=== PATIENT | female | born 1985 | race Caucasian/White ===

== ENCOUNTER 2017-12-08 12:52 | Emergency (ER) | payer OTHER ==
[~2017-12-08] VITALS: Ht 162.6 cm; Wt 71.1 kg
[~2017-12-08 12:52] MED LIST: CLIN1GEL54 TOP
[2017-12-08 12:56] VITALS: TEMP 36.7; Ht 162.6 cm; Wt 71.1 kg
[2017-12-08] MEDS ORDERED: ALPRAZOLAM 0.5 MG TAB PO STA (13:26)
[2017-12-08] MEDS ORDERED: CEPHALEXIN MONOHYDRATE 250 MG CAP PO ONE (13:30)
[2017-12-08] MEDS ORDERED: SULFAMETHOXAZOLE/TRIMETHOPRIM DS 800/160MG TAB PO ONE (13:30)
[2017-12-08] MEDS ORDERED: SULF800T23 PO (13:31)
[2017-12-08] MEDS ORDERED: ALPR-385 PO (13:31)
[2017-12-08] MEDS ORDERED: CEPH500C2 PO (13:31)
--- NOTE | 2017-12-08 13:31 | EMERGENCY ROOM VISIT NOTE ---
History Report prepared by Alma: Butch Barrios Under the Supervision of: Dr. Temo Ward D.O. First contact with patient: 13:00 Chief Complaint: MENTAL HEALTH EVALUATION Stated Complaint: PANIC ATTACK History of Present Illness The patient is a 32 year old female who presents to the Emergency Room with complaints of intermittent, yet worsening anxiety and panic attacks that she has been experiencing for the past 3 weeks. The patient states that she has had to call off work 4 times in the past 3 weeks due to anxiety/panic attacks. Her anxiety is precipitated by being around a lot of people, and she has had several panic attacks in the lunch-room at work. Her episode today lasted 10-15 minutes. She was seen in [place] ED a few days ago for similar symptoms and was sent home with Alprazolam and instructions to follow-up with with her primary care office. The patient does not currently have a psychiatrist as she discontinued her relationship with her prior psychiatrist because he wanted to attempt ECT treatment. The patient has a long history of anxiety, but denies any suicidal thoughts or every attempting to hurt herself. She denies any drug use or alcohol intake. She does smoke cigarettes. She takes Effexor daily and is now taking the Alprazolam. Source of History: patient Onset: 3 weeks Position: head (Psych) Symptom Intensity: 10-15 minute panic attack episode Quality: other (Anxiety) Timing: intermittent, worsening Review of Systems See HPI for pertinent positives & negatives. A total of 10 systems reviewed and were otherwise negative. Past Medical & Surgical Hx of Endometriosis. Family History Diabetes mellitus Hypertension Social History Smoking Status: Current Every Day Smoker Alcohol Use: none Drug Use: none Marital Status: single Housing Status: lives with family Occupation Status: employed Current/Historical Medications Scheduled Cephalexin Monohydrate (Keflex), 500 MG PO QID Clindamycin Hcl (Cleocin), 300 MG PO TID Sulfa/Trimethoprim (Bactrim Ds 800MG/160MG), 1 TAB PO BID Allergies Coded Allergies: Lorazepam (Unverified Allergy, Intermediate, RASH, 12/08/17) Morphine (Unverified Allergy, Intermediate, ARM BLEW UP, 12/08/17) Doxycycline (Verified Adverse Reaction, Unknown, vomiting, 02/20/14) Promethazine (Verified Adverse Reaction, Unknown, VOMITING, 02/20/14) Physical Exam Vital Signs Date Time Temp Pulse Resp B/P (MAP) Pulse Ox O2 Delivery O2 Flow Rate FiO2 12/08/17 14:30 86 16 126/72 99 12/08/17 12:56 36.7 90 16 134/77 97 Room Air Physical Exam GENERAL: Patient is awake, alert, and in no acute distress. Patient is very anxious appearing. EYES: The conjunctivae are clear. The pupils are round and reactive. EARS, NOSE, MOUTH AND THROAT: The nose is without any evidence of any deformity. Mucous membranes are moist tongue is midline NECK: The neck is nontender and supple. RESPIRATORY: Normal respiratory effort is noted there is no evidence of wheezing rhonchi or rales CARDIOVASCULAR: Regular rate and rhythm noted there no murmurs rubs or gallops normal S1 normal S2 GASTROINTESTINAL: The abdomen is soft. Bowel sounds are present in all quadrants. Abdomen is nontender MUSCULOSKELETAL/EXTREMITIES: There is no evidence of gross deformity full range of motion is noted in the hips and shoulders SKIN: There is a recent drained abscess on the left outer breast, purulent drainage noted. No fluctuance appreciated. There is no obvious evidence of any rash. There are no petechiae, pallor or cyanosis noted. NEUROLOGIC: Patient is awake alert and oriented x3 strength is symmetric patellar reflexes are 2+ bilaterally PSYCH: Affect was animated. Good eye contact. Patient appears very anxious. She is currently denying suicidal/homicidal ideations. Medical Decision & Procedures Medications Administered Medications (Trade) Dose Ordered Sig/Edna Route Start Time Stop Time Status Last Admin Dose Admin Alprazolam (Xanax Tab) 1 mg NOW STAT PO 12/08/17 13:26 12/08/17 13:27 DC 12/08/17 13:39 1 MG Trimethoprim/ Sulfamethoxazole (Septra Ds 800/ 160MG Tab) 1 tab NOW ONCE PO 12/08/17 13:30 12/08/17 13:31 DC 12/08/17 13:39 1 TAB Cephalexin Monohydrate (Keflex Cap) 500 mg NOW ONCE PO 12/08/17 13:30 12/08/17 13:31 DC 12/08/17 13:39 500 MG ED Course 1307: The patient was evaluated in room A8. A complete history and physical examination were performed. 1326: Ordered Xanax 1 mg PO. 1330: Ordered Cephalexin 500 mg PO, Trimethoprim 1 tablet PO. 1341: I discussed the results and treatment plan with her. She verbalized agreement of the treatment plan. The patient was discharged home. Medical Decision Differential diagnosis: Etiologies such as mood disorder, infection, hypoglycemia, electrolyte abnormalities, cardiac sources, intracerebral event, toxicologic, neurologic, as well as others were entertained. Nursing notes reviewed. Nursing notes reviewed The patient is a 32-year-old female who has a long history of anxiety who presented to the emergency department for evaluation of anxiety. The patient was treated with Xanax in the emergency department. The patient also complained of a recently drained abscess on her left breast. This was open but still actively draining. There did not appear to be any definite abscess left. A culture was sent. The patient was started on Bactrim and Keflex. She was set up an appointment with wound care center. We also were able to set the patient up with outpatient follow-up. She was encouraged to continue all medications as prescribed and call her primary care physician as well as her primary therapist for a follow-up appointment. The patient had a prescription for Xanax filled yesterday. For this reason she was encouraged to take this prescription rather than have a new prescription given to her. She is also encouraged to call crisis or return to the emergency department immediately if symptoms change worsening the need arises. [place] Drug Monitoring Program Search Results: patient reviewed within database Drug Monitoring Findings: Patient had 20 Alprazolam tablets filled yesterday. This will get her through. Medication Reconcilliation Current Medication List: was personally reviewed by me Blood Pressure Screening Patient's blood pressure: Normal blood pressure Impression Primary Impression: Acute anxiety Additional Impression: Left breast abscess Scribe Attestation The scribe's documentation has been prepared under my direction and personally reviewed by me in its entirety. I confirm that the note above accurately reflects all work, treatment, procedures, and medical decision making performed by me. Departure Information Dispostion Home / Self-Care Prescriptions Sulfa/Trimethoprim (Bactrim Ds 800MG/160MG) Tab 1 TAB PO BID, #14 TAB Prov: Temo Ward, DO 12/08/17 Cephalexin Monohydrate (KEFLEX) 500 Mg Cap 500 MG PO QID, #28 CAP Prov: Temo Ward, DO 12/08/17 Referrals Nick Whalen M.D. (PCP) Forms HOME CARE DOCUMENTATION FORM, IMPORTANT VISIT INFORMATION Patient Instructions My [facility] Additional Instructions Follow-up with your family doctor as well as the wound care center as scheduled. Continue to put dry dressings to the drainage area on your left breast 2-3 times a day. Continue all medications only as prescribed. Return to the emergency department immediately if symptoms change worsen or the need arises. Continue to use Motrin and Tylenol as directed for pain. Problem Qualifiers
[2017-12-08] MEDS ORDERED: CLIN300C2 PO (13:46)
[2017-12-08 14:30] VITALS: BP 126/72; PULSE 86; O2SAT 99
== END 2017-12-08 14:30 | disposition home or self-care (01) ==
LOC: C.EDB 12:53 → C.EDA 14:30
DX: F41.9 Anxiety disorder, unspecified (principal); N61.1 Abscess of the breast and nipple; F17.210 Nicotine dependence, cigarettes, uncomplicated; Z88.1 Allergy status to other antibiotic agents; Z88.8 Allergy status to other drugs, medicaments and biological substances

== ENCOUNTER 2018-09-12 18:00 | Observation (INO) ==
[2018-09-12] MEDS ORDERED: ACETAMINOPHEN 500 MG TAB PO STA (18:40)
[2018-09-12] MEDS ORDERED: ALPRAZolam 0.5 MG TABLET PO STA (18:40)
[2018-09-12] MEDS: IBUPROFEN 600 MG TAB PO STA (19:21)
[2018-09-12 19:58] LABS: Basophils # (auto) 0.02 K/uL (0-0.2); Basophils % (auto) 0.2 %; Eosinophils # (auto) 0.19 K/uL (0-0.5); Eosinophils % (auto) 2.1 %; Hematocrit (blood only) 33.7 % (37-47); Hemoglobin 11.2 g/dL (12.0-16.0); Immature Granulocytes # (auto) 0.02 K/uL (0.00-0.02); Immature Granulocytes % (auto) 0.2 %; Lymphocytes # (auto) 2.58 K/uL (1.2-3.4); Mean Corpuscular Hgb Conc 33.2 g/dL (32-36); Mean Corpuscular Volume 86.2 fL (80-100); Mean Platelet Volume 9.2 fL (7.4-10.4); Monocytes # (auto) 0.57 K/uL (0.11-0.59); Monocytes % (auto) 6.4 %; Neutrophils # (auto) 5.53 K/uL (1.4-6.5); Neutrophils % (auto) 62.1 %; Platelet Count 253 K/uL (130-400); RDW Coefficient of Variation 13.8 % (11.5-14.5); RDW Standard Deviation 43.6 fL (36.4-46.3); Red Blood Count 3.91 M/uL (4.2-5.4); White Blood Count 8.91 K/uL (4.8-10.8)
[2018-09-12] MEDS ORDERED: ONDANSETRON INJ 2 MG/ML 2 ML VIAL IV STA (19:58)
[2018-09-12] MEDS ORDERED: SODIUM CHLORIDE 0.9% 1000ML 1,000 ML IV ONE (19:58)
[2018-09-12] MEDS ORDERED: HYDROmorphone INJ 0.5 MG/0.5 ML SYR IV PRN (19:59)
[2018-09-12 20:09] LABS: INR 0.9 (0.9-1.1); Partial Thromboplastin Time 27.1 Seconds (21.0-31.0); Prothrombin Time 9.6 Seconds (9.0-12.0)
[2018-09-12 20:13] LABS: BUN Creatinine Ratio 27.9 (10-20); Blood Urea Nitrogen 10 mg/dl (7-18); Calcium 7.9 mg/dl (8.5-10.1); Carbon Dioxide 27 mmol/L (21-32); Chloride 104 mmol/L (98-107); Creatinine Clr Calc Pharmacy 215.3 ml/min; Est GFR (African American) > 150.0; Est GFR (Non-African American) 139.4; Glucose 96 mg/dl (70-99); Sodium 137 mmol/L (136-145)
[2018-09-12] MEDS ORDERED: fentaNYL citrate 100 MCG/2 ML VIAL ONE (20:32)
[2018-09-12] MEDS ORDERED: SUCCINYLCHOLINE CHLORIDE 20 MG/ML 10 ML VIAL ONE (20:32)
[2018-09-12] MEDS ORDERED: PROPOFOL IV EMULSION 10 MG/ML 20 ML VIAL IV ONE (20:32)
[2018-09-12] MEDS ORDERED: MIDAZOLAM HCL 1 MG/ML 2ML VIAL ONE (20:32)
[2018-09-12] MEDS ORDERED: ALBUMIN HUMAN 5% 12.5 GM/250 ML VIAL IV ONE (20:35)
--- NOTE | 2018-09-12 20:38 | Anesthesiology Consultation ---
Date of Service September 12, 2018 Assessment & Plan (1) Encounter for pre-operative examination: Chart Review Chart Review: Acceptable Risk for Surgery and Patient NOT seen in Pre Admission Testing Consults Requested none History Surgery Operation Date: 09/12/18 20:30 Proposed Procedures p Dilation and Evacuation - Olvin Menjivar MD Height/Weight Height: 5 ft 4 in Weight: 77.1 kg Allergies Allergy/AdvReac Type Severity Reaction Status Date / Time lorazepam Allergy Intermediate RASH Unverified 07/25/18 19:00 morphine Allergy Intermediate ARM BLEW UP Unverified 07/25/18 19:00 doxycycline AdvReac Unknown vomiting Verified 07/25/18 19:00 promethazine AdvReac Unknown VOMITING Verified 07/25/18 19:00 Medications Home Medications Medication Instructions Recorded Confirmed Last Taken PNV cmb#95-ferrous fumarate-FA 1 tab PO DAILY 07/25/18 07/25/18 Unknown [] Active Medications Generic Name Dose Route Start Last Admin Trade Name Freq PRN Reason Stop Dose Admin Hydromorphone HCl 0.5 mg 09/12/18 19:59 09/12/18 20:04 Dilaudid IV 09/26/18 19:58 0.5 mg Q15M PRN Administration Pain Sodium Chloride 1,000 mls @ 999 mls/hr 09/12/18 19:58 09/12/18 20:04 Nss 1000ml IV 09/12/18 20:58 999 mls/hr .Q1H1M ONE Administration Past Medical History Medical History Hx of History of miscarriage Past Surgical History d and e Past Anesthesia History No Hx of Anesthesia Complications and No Family Hx of Anesthesia Complications History of PONV No Motion Sickness Screening History of Motion Sickness: No Social History Smoking Status: Current every day smoker Smoking cigarettes per day: 1/2 pack day Hx Alcohol Use: No Physical Exam Vital Signs Last Vital Signs Temp 37.2 C 09/12/18 18:04 Pulse 97 H 09/12/18 18:04 Resp 20 09/12/18 18:04 BP 125/68 09/12/18 18:04 Testing Laboratory Results 09/12/18 19:44 09/12/18 19:44 PT 9.6 Seconds (9.0-12.0) 09/12/18 19:44 INR 0.9 (0.9-1.1) 09/12/18 19:44 APTT 27.1 Seconds (21.0-31.0) 09/12/18:44 09/12/18:44 HCG, Quant Pending
[2018-09-12] MEDS ORDERED: ePHEDrine sulfate 50 MG/ML AMP IV PRN (20:41)
[2018-09-12] MEDS ORDERED: ONDANSETRON INJ 2 MG/ML 2 ML VIAL IV PRN ×2 (20:41→21:38)
[2018-09-12] MEDS ORDERED: fentaNYL citrate 100 MCG/2 ML VIAL IV PRN (20:41)
[2018-09-12] MEDS ORDERED: ATROPINE SULFATE 0.1 MG/ML 10ML SYR IV PRN (20:41)
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
[2018-09-12] MEDS ORDERED: SODIUM CHLORIDE 0.9% 250 ML IV PRN (21:14)
[2018-09-12] MEDS ORDERED: ACETAMINOPHEN 325 MG TAB PO PRN (21:38)
--- NOTE | 2018-09-12 21:38 | Post Operative Brief Note ---
Immediate Post Op Note v1 Date of Surgery September 12, 2018 Pre & Post Diagnosis Operation Date: 09/12/18 20:30 <No data on this case meets the specified criteria> incomplete heavy bleeding with clotting Procedure Operation Date: 09/12/18 20:30 <No data on this case meets the specified criteria> suction and sharp evacuation of uterine contents Surgeon Olvin Menjivar MD Thermoplastic Technician none Estimated Blood Loss 200 Findings Consistent with Post-Op Diagnosis retained placenta Specimens uterine contents Anesthesia Type General Complications none Disposition Accompanied Patient To Recovery: No Disposition: Surgical ICU Overlapping Procedure I was immediately available: during the entire case.
[2018-09-12] MEDS ORDERED: CEFAZOLIN 2000MG 2,000 MG/15 ML SYR IV SCH (22:00)
[2018-09-12 22:13] LABS: Basophils # (auto) 0.03 K/uL (0-0.2); Basophils % (auto) 0.3 %; Eosinophils # (auto) 0.15 K/uL (0-0.5); Eosinophils % (auto) 1.5 %; Hemoglobin 9.2 g/dL (12.0-16.0); Immature Granulocytes # (auto) 0.03 K/uL (0.00-0.02); Immature Granulocytes % (auto) 0.3 %; Lymphocytes # (auto) 2.26 K/uL (1.2-3.4); Lymphocytes % (auto) 21.9 %; Mean Corpuscular Volume 87.7 fL (80-100); Mean Platelet Volume 9.2 fL (7.4-10.4); Monocytes # (auto) 0.56 K/uL (0.11-0.59); Monocytes % (auto) 5.4 %; Neutrophils # (auto) 7.31 K/uL (1.4-6.5); Neutrophils % (auto) 70.6 %; Platelet Count 203 K/uL (130-400); RDW Coefficient of Variation 13.7 % (11.5-14.5); RDW Standard Deviation 44.1 fL (36.4-46.3); Red Blood Count 3.08 M/uL (4.2-5.4); White Blood Count 10.34 K/uL (4.8-10.8)
[2018-09-12 22:17] LABS: Mean Corpuscular Hgb Conc 34.1 g/dL (32-36)
--- NOTE | 2018-09-12 23:05 | Anesthesiology Progress Note ---
Date of Service September 12, 2018 Anesthesia Post Procedure Vital Signs Vital Signs: Temp Pulse Pulse Resp BP BP Pulse Ox 09/12/18 22:06 36.2 C L 86 18 103/71 95 09/12/18 21:56 86 18 103/61 96 09/12/18 21:46 83 16 118/69 97 09/12/18 21:36 86 18 110/65 97 09/12/18 21:26 36.3 C L 85 20 105/59 L 100 09/12/18 18:04 37.2 C 97 H 20 125/68 Notes Mental Status: alert / awake / arousable and participated in evaluation Patient Amnestic to Procedure: Yes Nausea / Vomiting: adequately controlled Pain: adequately controlled Airway Patency, RR, SpO2: stable & adequate BP & HR: stable & adequate Hydration State: stable & adequate Anesthetic Complications: no major complications apparent and Pt Satisfied with anesthetic care Notes: Patient was urgently taken to the OR for heavy vaginal bleeding for an incomplete . She had an IV placed in the ER in her left foot. In OR, prior to induction, I noticed the IV did NOT run and when flushed it appeared there was blood return that was pulsating. Given the concern that it was intra- arterial, I placed an IV using U/S guidance in her LUE on the first attempt. I used this IV for induction and the remainder of the case. The procedure was 7 minutes and the remaining products of conception were removed. Patient received IV fluid therapy and albumin. She also received a dose of methergine in her left deltoid per surgeon. Hemostasis was achieved and patient was easily extubated and taken to recovery. Her vitals were stable and HR was NOT tachycardic. She was somehwhat somnolent but was able to state she had no main or nausea. I ordered 2 units of pRBCs to be crossmatched. I also ordered a repeat CBC in recovery, which shows a hemoglobin of slightly over 9. Given her stable hemodynamics, lack of heart disease and the fact that she had the D&E successfully completed, I felt she did not warrant a blood transfusion at this time. Dr. Menjivar is primary for this patient and plans to repeat the CBC in the morning or sooner if she becomes in any way symptomatic.
[2018-09-12] MEDS: SODIUM CHLORIDE 0.9% 1000ML 1,000 ML IV SCH (23:30)
--- NOTE | 2018-09-13 03:50 | Operative Report ---
DATE OF OPERATION: 09/12/2018 PROCEDURE: Suction sharp evacuation of uterine content. INDICATIONS FOR SURGERY: Heavy vaginal bleeding with clotting. PREOPERATIVE DIAGNOSIS: Retained placenta, hemorrhage. POSTOPERATIVE DIAGNOSIS: Same, pathology pending. SURGEON: Quinton Menjivar MD ESTIMATED BLOOD LOSS: 200 mL plus. ANESTHESIA: General. OPERATIVE FINDINGS AND PROCEDURE: The patient was brought to the OR table, correctly identified by armband and conversation. It was necessary to restart an IV. The anesthesiologist got a good IV in, then put the patient to sleep. Inspection of the perineum revealed heavy vaginal bleeding and clotting. Perineum and vagina were painted with Betadine paint after positioning the patient in the stirrups. Following this, weighted speculum was placed in the posterior vagina. Anterior lip of cervix was grasped with ring forceps. Cervix was already dilated. A smooth curette was placed in the uterine cavity. All 4 quadrants of the uterus were thoroughly and systematically curetted. This was productive of a large amount of retained placental tissue. Following this, a suction curette was placed in the uterine cavity and suction was reapplied to remove all remaining fragments and debris and clots. Following this, bimanual massage was performed with IM Methergine given. With this, the patient achieved good hemostasis. Instruments were removed. The patient tolerated the procedure well and left the OR in good condition. I attest to the content of the Intraoperative Record and any orders documented therein. Any exception s are noted below.
[2018-09-13 07:13] LABS: Basophils # (auto) 0.01 K/uL (0-0.2); Basophils % (auto) 0.2 %; Eosinophils # (auto) 0.12 K/uL (0-0.5); Eosinophils % (auto) 1.9 %; Hematocrit (blood only) 21.9 % (37-47); Hemoglobin 7.3 g/dL (12.0-16.0); Immature Granulocytes # (auto) 0.02 K/uL (0.00-0.02); Immature Granulocytes % (auto) 0.3 %; Lymphocytes # (auto) 2.11 K/uL (1.2-3.4); Lymphocytes % (auto) 33.1 %; Mean Corpuscular Hgb Conc 33.3 g/dL (32-36); Mean Corpuscular Volume 86.2 fL (80-100); Monocytes # (auto) 0.43 K/uL (0.11-0.59); Monocytes % (auto) 6.7 %; Neutrophils # (auto) 3.69 K/uL (1.4-6.5); Neutrophils % (auto) 57.8 %; Platelet Count 212 K/uL (130-400); RDW Coefficient of Variation 13.8 % (11.5-14.5); RDW Standard Deviation 44.1 fL (36.4-46.3); Red Blood Count 2.54 M/uL (4.2-5.4); White Blood Count 6.38 K/uL (4.8-10.8)
[2018-09-13 07:40] LABS: RBC Morphology Unremarkable
[2018-09-13] MEDS ORDERED: INFLUENZA ADMINISTRATION CHARGE ONE (09:00)
[2018-09-13] MEDS ORDERED: INFLUENZA VIRUS QUAD VACCINE 0.5 ML SYR IM ONE (09:00)
--- NOTE | 2018-09-13 11:07 | Obstetrical Progress Note ---
Date of Service September 13, 2018 Physical Exam 2 Vital Signs (Past 24 Hours): Last Vital Signs Temp 36.8 C 09/13/18 07:08 Pulse 86 09/13/18 07:08 Resp 18 09/13/18 07:08 BP 93/57 L 09/13/18 07:08 Pulse Ox 97 09/13/18 07:08 Physical Exam: abdomen soft and non tender vaginal bleeding scant to moderate no calf tenderness ambulating well hgb 7.3 patient instructed to take vitamins and supplemental iron
[2018-09-13] MEDS: SODIUM CHLORIDE 0.9% 1000ML 1,000 ML IV SCH (11:16)
--- NOTE | 2018-09-13 11:29 | Emergency Department Note ---
Entered by Seven Chung acting as a scribe for Hollis Judd MD History of Present Illness General Chief complaint: Vaginal Bleeding Stated complaint: VAGINAL BLEEDING Time Seen by Provider: 09/12/18 18:31 Source: patient History of Present Illness Provider complaint: vaginal bleeding Onset (ago): day(s) 5 Location: genitals Pain Consistency: + other (sudden) Maximum Pain Intensity: 10 Current Pain Intensity: 8 Quality: + other (cramping) Associated symptoms: + other (abdominal pain and cramping, delivered fetus and placenta at 13-14 weeks) Treatments prior to arrival: none The patient is a 33 year old female who presents to the Emergency Room with complaints of vaginal bleeding that started 5 days ago. The patient reports that when she woke up 5 days ago she felt like she had been incontinent, but reports that it was her water that broke, but she noticed there was blood in it. The patient states that the bleeding worsened after 5 to 10 minutes. The patient admits to cramping and lower abdominal pain. She rates her pain as an 8/ 10 in severity. She states she made an appointment with her OBGYN and reports that while she was walking into the doctors office, she ran to the bathroom where she delivered the fetus as well as the placenta. The patient states that she was about 13-14 weeks and reports that she has been 11 times and has had 9 miscarriages. The patient reports that she has been bleeding since then and has been using pads for the bleeding, but, the bleeding worsened today as did her cramping. She reports a history of a DNE procedure. She denies taking anything for her symptoms. Home Medications Home Medications Medication Instructions Recorded Confirmed Type alprazolam [Xanax] 1 mg PO TID PRN 09/13/18 09/13/18 History methadone 110 mg PO DAILY 09/13/18 09/13/18 History Allergies Allergy/AdvReac Type Severity Reaction Status Date / Time lorazepam Allergy Intermediate RASH Unverified 07/25/18 19:00 morphine Allergy Intermediate ARM BLEW UP Unverified 07/25/18 19:00 doxycycline AdvReac Unknown vomiting Verified 07/25/18 19:00 promethazine AdvReac Unknown VOMITING Verified 07/25/18 19:00 Past Med/Surg History Medical History Hx of History of miscarriage Family History Other No known health problems Social History Current Living Situation: Significant Other Current Living Situation Comment: fiance and children current occupational status: employed Other Information That Helps Us Care for You: No Feels Safe at Home: Yes Safety Concerns: Feels Safe At This Time Smoking Status: Current every day smoker Tobacco Type: cigarettes Do You Dip or Chew Tobacco: No Tobacco Cessation Education Requested by Patient: No Hx Alcohol Use: No Hx Substance Use: No Beliefs That Will Affect Care: None Preferred Language: [place] Review of Systems See HPI for pertinent positives & negatives. and A total of 10 systems reviewed and were otherwise negative Physical Exam Vital Signs Vital Signs - 24 hr 09/12/18 18:04 09/12/18 21:26 09/12/18 21:36 Temperature 37.2 C 36.3 C L Temperature Source Oral Oral Sepsis Recent Fever Within 48 Hours No Sepsis Action Taken by Nursing No Action Required Pulse Rate 97 H Pulse Rate [Left Apical] 85 86 Pulse Rate [Left Brachial] Pulse Rhythm [Left Apical] Regular Regular Pulse Strength [Left Apical] Normal Normal Respiratory Rate 20 20 18 Respiratory Effort / Characteristics Non-Labored Spontaneous Non-Labored Spontaneous Respiratory Depth Normal Normal Respiratory Pattern Regular Regular Blood Pressure 125/68 Blood Pressure [Left Arm] Blood Pressure [Right Arm] 105/59 L 110/65 Blood Pressure Mean 87 Blood Pressure Mean [Left Arm] Blood Pressure Mean [Right Arm] 74 80 Blood Pressure Position Sitting Blood Pressure Position [Left Arm] Blood Pressure Position [Right Arm] Lying Lying Pulse Oximetry 100 97 Oxygen Delivery Method Oxymask Oxymask Oxygen Flow Rate 5 5 09/12/18 21:46 09/12/18 21:56 09/12/18 22:06 Temperature 36.2 C L Temperature Source Oral Sepsis Recent Fever Within 48 Hours Sepsis Action Taken by Nursing Pulse Rate Pulse Rate [Left Apical] 83 86 86 Pulse Rate [Left Brachial] Pulse Rhythm [Left Apical] Regular Regular Regular Pulse Strength [Left Apical] Normal Normal Normal Respiratory Rate 16 18 18 Respiratory Effort / Characteristics Non-Labored Spontaneous Non-Labored Spontaneous Non-Labored Spontaneous Respiratory Depth Normal Normal Normal Respiratory Pattern Regular Regular Regular Blood Pressure Blood Pressure [Left Arm] Blood Pressure [Right Arm] 118/69 103/61 103/71 Blood Pressure Mean Blood Pressure Mean [Left Arm] Blood Pressure Mean [Right Arm] 85 75 81 Blood Pressure Position Blood Pressure Position [Left Arm] Blood Pressure Position [Right Arm] Lying Lying Lying Pulse Oximetry 97 96 95 Oxygen Delivery Method Room Air Room Air Room Air Oxygen Flow Rate 09/12/18 23:02 09/12/18 23:30 09/12/18 23:37 Temperature 36.6 C 36.6 C 36.7 C Temperature Source Oral Oral Oral Sepsis Recent Fever Within 48 Hours Sepsis Action Taken by Nursing Pulse Rate Pulse Rate [Left Apical] Pulse Rate [Left Brachial] 87 87 80 Pulse Rhythm [Left Apical] Pulse Strength [Left Apical] Respiratory Rate 16 16 14 Respiratory Effort / Characteristics Non-Labored Spontaneous Respiratory Depth Normal Respiratory Pattern Blood Pressure Blood Pressure [Left Arm] 104/70 104/70 Blood Pressure [Right Arm] 101/64 Blood Pressure Mean Blood Pressure Mean [Left Arm] 81 81 Blood Pressure Mean [Right Arm] 76 Blood Pressure Position Blood Pressure Position [Left Arm] Lying Lying Blood Pressure Position [Right Arm] Lying Pulse Oximetry 97 97 98 Oxygen Delivery Method Room Air Room Air Room Air Oxygen Flow Rate 09/13/18 00:47 09/13/18 03:22 09/13/18 07:08 Temperature 36.6 C 36.4 C L 36.8 C Temperature Source Oral Oral Oral Sepsis Recent Fever Within 48 Hours Sepsis Action Taken by Nursing Pulse Rate Pulse Rate [Left Apical] Pulse Rate [Left Brachial] 84 73 86 Pulse Rhythm [Left Apical] Pulse Strength [Left Apical] Respiratory Rate 14 18 18 Respiratory Effort / Characteristics Respiratory Depth Respiratory Pattern Blood Pressure Blood Pressure [Left Arm] 105/67 112/73 93/57 L Blood Pressure [Right Arm] Blood Pressure Mean Blood Pressure Mean [Left Arm] 79 86 69 Blood Pressure Mean [Right Arm] Blood Pressure Position Blood Pressure Position [Left Arm] Lying Lying Blood Pressure Position [Right Arm] Pulse Oximetry 96 100 97 Oxygen Delivery Method Room Air Room Air Room Air Oxygen Flow Rate 09/13/18 11:07 Temperature 36.8 C Temperature Source Sepsis Recent Fever Within 48 Hours Sepsis Action Taken by Nursing Pulse Rate Pulse Rate [Left Apical] 86 Pulse Rate [Left Brachial] 86 Pulse Rhythm [Left Apical] Pulse Strength [Left Apical] Respiratory Rate 18 Respiratory Effort / Characteristics Respiratory Depth Respiratory Pattern Blood Pressure Blood Pressure [Left Arm] 93/57 L Blood Pressure [Right Arm] 101/64 Blood Pressure Mean Blood Pressure Mean [Left Arm] Blood Pressure Mean [Right Arm] Blood Pressure Position Blood Pressure Position [Left Arm] Blood Pressure Position [Right Arm] Pulse Oximetry 97 Oxygen Delivery Method Oxygen Flow Rate GENERAL: Patient is in no acute distress. HEENT: No acute trauma, normocephalic atraumatic, mucous membranes moist, no nasal congestion, no scleral icterus. NECK: No stridor, no adenopathy, no meningismus, trachea is midline. LUNGS: Clear to auscultation bilaterally, no wheeze, no rhonchi, breath sounds equal. HEART: Without murmurs gallops or rubs, regular rate and rhythm. ABDOMEN: Soft, bowel sounds positive, no hernias, no peritonitis, tenderness to bilateral lower pelvis. VAGINAL: A significant amount of blood in the vagina, clots noted. Active bleeding from cervix. Cervix is dilated someone at about 1 cm. After the exam she had a uterine contraction which expelled more blood vaginally. EXTREMITIES: No cyanosis or edema, full range of motion of all the joints without pain or difficulty, no signs for acute trauma. NEUROLOGIC: Oriented x 3, no acute motor or sensory deficits, no focal weakness. SKIN: No rash, no jaundice, no diaphoresis. Course 1833: Past medical records reviewed. The patient was evaluated in room C8, and a complete history and physical examination were performed. 5: I spoke with the patient about getting an IV place and she was agreeable. The IV team was called. 1928: I reviewed the patients case with Mary Khan OB[facility]. He states he will take her to the OR for a DNE. 1934: I updated the patient on the treatment plan and she was agreeable. Consultations Consultation #1: Mary Khan [facility] Time: 19:29 Administered Medications Hydromorphone HCl (Dilaudid) 0.5 mg IV Q15M PRN PRN Reason: Pain Stop: 09/26/18 19:58 Last Admin: 09/12/18 20:04 Dose: 0.5 mg Sodium Chloride (Nss 1000ml) 1,000 mls @ 125 mls/hr IV .Q8H CINDY Stop: 10/12/18 21:44 Last Infusion: 09/12/18 23:35 Dose: 0 mls/hr Admin: 09/12/18 23:30 Dose: 125 mls/hr Cefazolin Sodium (Ancef 2000mg) 2,000 mg in 15 mls @ 3.75 mls/min IV ONCE CINDY; Protocol Stop: 09/13/18 21:59 Last Admin: 09/12/18 21:04 Dose: 3.75 mls/min Discontinued Medications Acetaminophen (Tylenol) 1,000 mg PO NOW STA Stop: 09/12/18 18:41 Last Admin: 09/12/18 19:25 Dose: 1,000 mg Alprazolam (Xanax) 1 mg PO NOW STA Stop: 09/12/18 18:41 Last Admin: 09/12/18 19:21 Dose: 1 mg Sodium Chloride (Nss 1000ml) 1,000 mls @ 999 mls/hr IV .Q1H1M ONE Stop: 09/12/18 20:58 Last Admin: 09/12/18 20:04 Dose: 999 mls/hr Ibuprofen (Motrin) 600 mg PO NOW STA Stop: 09/12/18 18:41 Last Admin: 09/12/18 19:21 Dose: 600 mg Admin: 09/12/18 19:21 Dose: 600 mg Ondansetron HCl (Zofran) 4 mg IV NOW STA Stop: 09/12/18 19:59 Last Admin: 09/12/18 20:04 Dose: 4 mg Medical Decision Making Differential Diagnosis Differential: Retained products of conception, endometriosis, bleeding post miscarriage, anemia, UTI, incomplete . Medical Records Attestation: I reviewed the patient's medical records. Home Medications Current Medication List: was personally reviewed by me Laboratory Data Attestation: I reviewed the patient's lab results. Result diagrams: 09/13/18 06:52 09/12/18 19:44 Lab Results 09/12/18 09/12/18 09/12/18 Range/Units 19:44 19:44 19:44 WBC 8.91 (4.8-10.8) K/uL RBC 3.91 L (4.2-5.4) M/uL Hgb 11.2 L (12.0-16.0) g/dL Hct 33.7 L (37-47) % MCV 86.2 (80-100) fL MCH 28.6 (25-34) pg MCHC 33.2 (32-36) g/dL RDW Std Deviation 43.6 (36.4-46.3) fL RDW Coeff of Cira 13.8 (11.5-14.5) % Plt Count 253 (130-400) K/uL MPV 9.2 (7.4-10.4) fL Immature Gran % (Auto) 0.2 % Neut % (Auto) 62.1 % Lymph % (Auto) 29.0 % [place] % (Auto) 6.4 % Eos % (Auto) 2.1 % Baso % (Auto) 0.2 % Immature Gran # (Auto) 0.02 (0.00-0.02) K/uL Neut # (Auto) 5.53 (1.4-6.5) K/uL Lymph # (Auto) 2.58 (1.2-3.4) K/uL [place] # (Auto) 0.57 (0.11-0.59) K/uL Eos # (Auto) 0.19 (0-0.5) K/uL Baso # (Auto) 0.02 (0-0.2) K/uL Absolute Nucleated RBC Nucleated RBC % (auto) Neutrophils % (Manual) Band Neutrophils % Lymphocytes % (Manual) Prolymphocyte % Reactive Lymphs % (Man) Monocytes % (Manual) Eosinophils % (Manual) Basophils % (Manual) Metamyelocytes % (Man) Myelocytes % (Man) Promyelocytes % (Man) Blast Cells % (Manual) Plasma Cell % (Manual) Other Cells % Nucleated RBC % Neutrophils # (Manual) Band Neutrophils # Total Absolute Neuts Lymphocytes # (Manual) Prolymphocyte # Reactive Lymphs # Total Abs Lymphocytes Monocytes # (Manual) Eosinophils # (Manual) Basophils # (Manual) Metamyelocytes # (Man) Myelocytes # (Manual) Promyelocytes # (Man) Blast Cells # (Man) Plasma Cell # (Manual) Other Cells # Nucleated RBCs # (Man) Hypersegmented Neuts Hyposegmented Neuts Hypogranular Neuts Large Granular Lymphs # Lrg Granular Lymphs Hairy Cells Smudge Cells Toxic Granulation Toxic Vacuolation Dohle Bodies Ying Rods Platelet Estimate Hypogranular Platelets Clumped Platelets Giant Platelets Platelet Satelliting RBC Morphology Polychromasia Hypochromasia Poikilocytosis Basophilic Stippling Anisocytosis Microcytosis Macrocytosis Spherocytes Pappenheimer Bodies Sickle Cells Target Cells Tear Drop Cells Ovalocytes Stomatocytes Moreno-Manzano Bodies Echinocytes Acanthocytes (Spur) Rouleaux RBC Agglutinates Schistocytes RBC Morph Comment Sezary Cell PT 9.6 (9.0-12.0) Seconds INR 0.9 (0.9-1.1) APTT 27.1 (21.0-31.0) Seconds PTT Ratio 1.0 Sodium 137 (136-145) mmol/L Potassium 4.0 (3.5-5.1) mmol/L Chloride 104 (98-107) mmol/L Carbon Dioxide 27 (21-32) mmol/L Anion Gap 6.0 (3-11) BUN 10 (7-18) mg/dl Creatinine 0.37 L (0.6-1.2) mg/dl Est Cr Clr Drug Dosing 215.3 ml/min Est GFR ( Amer) > 150.0 Est GFR (Non-Af Amer) 139.4 BUN/Creatinine Ratio 27.9 H (10-20) Glucose 96 (70-99) mg/dl Calcium 7.9 L (8.5-10.1) mg/dl HCG, Quant mIU/ml Blood Type Blood Type Recheck Antibody Screen Crossmatch 09/12/18 09/12/18 09/12/18 Range/Units 19:44 19:44 21:37 WBC (4.8-10.8) K/uL RBC (4.2-5.4) M/uL Hgb (12.0-16.0) g/dL Hct (37-47) % MCV (80-100) fL MCH (25-34) pg MCHC (32-36) g/dL RDW Std Deviation (36.4-46.3) fL RDW Coeff of Cira (11.5-14.5) % Plt Count (130-400) K/uL MPV (7.4-10.4) fL Immature Gran % (Auto) % Neut % (Auto) % Lymph % (Auto) % [place] % (Auto) % Eos % (Auto) % Baso % (Auto) % Immature Gran # (Auto) (0.00-0.02) K/uL Neut # (Auto) (1.4-6.5) K/uL Lymph # (Auto) (1.2-3.4) K/uL [place] # (Auto) (0.11-0.59) K/uL Eos # (Auto) (0-0.5) K/uL Baso # (Auto) (0-0.2) K/uL Absolute Nucleated RBC Nucleated RBC % (auto) Neutrophils % (Manual) Band Neutrophils % Lymphocytes % (Manual) Prolymphocyte % Reactive Lymphs % (Man) Monocytes % (Manual) Eosinophils % (Manual) Basophils % (Manual) Metamyelocytes % (Man) Myelocytes % (Man) Promyelocytes % (Man) Blast Cells % (Manual) Plasma Cell % (Manual) Other Cells % Nucleated RBC % Neutrophils # (Manual) Band Neutrophils # Total Absolute Neuts Lymphocytes # (Manual) Prolymphocyte # Reactive Lymphs # Total Abs Lymphocytes Monocytes # (Manual) Eosinophils # (Manual) Basophils # (Manual) Metamyelocytes # (Man) Myelocytes # (Manual) Promyelocytes # (Man) Blast Cells # (Man) Plasma Cell # (Manual) Other Cells # Nucleated RBCs # (Man) Hypersegmented Neuts Hyposegmented Neuts Hypogranular Neuts Large Granular Lymphs # Lrg Granular Lymphs Hairy Cells Smudge Cells Toxic Granulation Toxic Vacuolation Dohle Bodies Ying Rods Platelet Estimate Hypogranular Platelets Clumped Platelets Giant Platelets Platelet Satelliting RBC Morphology Polychromasia Hypochromasia Poikilocytosis Basophilic Stippling Anisocytosis Microcytosis Macrocytosis Spherocytes Pappenheimer Bodies Sickle Cells Target Cells Tear Drop Cells Ovalocytes Stomatocytes Moreno-Manzano Bodies Echinocytes Acanthocytes (Spur) Rouleaux RBC Agglutinates Schistocytes RBC Morph Comment Sezary Cell PT (9.0-12.0) Seconds INR (0.9-1.1) APTT (21.0-31.0) Seconds PTT Ratio Sodium (136-145) mmol/L Potassium (3.5-5.1) mmol/L Chloride (98-107) mmol/L Carbon Dioxide (21-32) mmol/L Anion Gap (3-11) BUN (7-18) mg/dl Creatinine (0.6-1.2) mg/dl Est Cr Clr Drug Dosing ml/min Est GFR ( Amer) Est GFR (Non-Af Amer) BUN/Creatinine Ratio (10-20) Glucose (70-99) mg/dl Calcium (8.5-10.1) mg/dl HCG, Quant 7781 mIU/ml Blood Type O Positive Blood Type Recheck O Positive Antibody Screen NEGATIVE Crossmatch See Detail 09/12/18 09/13/18 09/13/18 Range/Units 21:37 05:59 06:52 WBC 10.34 Cancelled 6.38 (4.8-10.8) K/uL RBC 3.08 L Cancelled 2.54 L (4.2-5.4) M/uL Hgb 9.2 L Cancelled 7.3 L (12.0-16.0) g/dL Hct 27.0 L Cancelled 21.9 L (37-47) % MCV 87.7 Cancelled 86.2 (80-100) fL MCH 29.9 Cancelled 28.7 (25-34) pg MCHC 34.1 Cancelled 33.3 (32-36) g/dL RDW Std Deviation 44.1 Cancelled 44.1 (36.4-46.3) fL RDW Coeff of Cira 13.7 Cancelled 13.8 (11.5-14.5) % Plt Count 203 Cancelled 212 (130-400) K/uL MPV 9.2 Cancelled 9.0 (7.4-10.4) fL Immature Gran % (Auto) 0.3 Cancelled 0.3 % Neut % (Auto) 70.6 Cancelled 57.8 % Lymph % (Auto) 21.9 Cancelled 33.1 % [place] % (Auto) 5.4 Cancelled 6.7 % Eos % (Auto) 1.5 Cancelled 1.9 % Baso % (Auto) 0.3 Cancelled 0.2 % Immature Gran # (Auto) 0.03 H Cancelled 0.02 (0.00-0.02) K/uL Neut # (Auto) 7.31 H Cancelled 3.69 (1.4-6.5) K/uL Lymph # (Auto) 2.26 Cancelled 2.11 (1.2-3.4) K/uL [place] # (Auto) 0.56 Cancelled 0.43 (0.11-0.59) K/uL Eos # (Auto) 0.15 Cancelled 0.12 (0-0.5) K/uL Baso # (Auto) 0.03 Cancelled 0.01 (0-0.2) K/uL Absolute Nucleated RBC Cancelled Nucleated RBC % (auto) Cancelled Neutrophils % (Manual) Cancelled Band Neutrophils % Cancelled Lymphocytes % (Manual) Cancelled Prolymphocyte % Cancelled Reactive Lymphs % (Man) Cancelled Monocytes % (Manual) Cancelled Eosinophils % (Manual) Cancelled Basophils % (Manual) Cancelled Metamyelocytes % (Man) Cancelled Myelocytes % (Man) Cancelled Promyelocytes % (Man) Cancelled Blast Cells % (Manual) Cancelled Plasma Cell % (Manual) Cancelled Other Cells % Cancelled Nucleated RBC % Cancelled Neutrophils # (Manual) Cancelled Band Neutrophils # Cancelled Total Absolute Neuts Cancelled Lymphocytes # (Manual) Cancelled Prolymphocyte # Cancelled Reactive Lymphs # Cancelled Total Abs Lymphocytes Cancelled Monocytes # (Manual) Cancelled Eosinophils # (Manual) Cancelled Basophils # (Manual) Cancelled Metamyelocytes # (Man) Cancelled Myelocytes # (Manual) Cancelled Promyelocytes # (Man) Cancelled Blast Cells # (Man) Cancelled Plasma Cell # (Manual) Cancelled Other Cells # Cancelled Nucleated RBCs # (Man) Cancelled Hypersegmented Neuts Cancelled Hyposegmented Neuts Cancelled Hypogranular Neuts Cancelled Large Granular Lymphs Cancelled # Lrg Granular Lymphs Cancelled Hairy Cells Cancelled Smudge Cells Cancelled Toxic Granulation Cancelled Toxic Vacuolation Cancelled Dohle Bodies Cancelled Ying Rods Cancelled Platelet Estimate Cancelled Hypogranular Platelets Cancelled Clumped Platelets Cancelled Giant Platelets Cancelled Platelet Satelliting Cancelled RBC Morphology Cancelled Unremarkable Polychromasia Cancelled Hypochromasia Cancelled Poikilocytosis Cancelled Basophilic Stippling Cancelled Anisocytosis Cancelled Microcytosis Cancelled Macrocytosis Cancelled Spherocytes Cancelled Pappenheimer Bodies Cancelled Sickle Cells Cancelled Target Cells Cancelled Tear Drop Cells Cancelled Ovalocytes Cancelled Stomatocytes Cancelled Moreno-Manzano Bodies Cancelled Echinocytes Cancelled Acanthocytes (Spur) Cancelled Rouleaux Cancelled RBC Agglutinates Cancelled Schistocytes Cancelled RBC Morph Comment Cancelled Sezary Cell Cancelled PT (9.0-12.0) Seconds INR (0.9-1.1) APTT (21.0-31.0) Seconds PTT Ratio Sodium (136-145) mmol/L Potassium (3.5-5.1) mmol/L Chloride (98-107) mmol/L Carbon Dioxide (21-32) mmol/L Anion Gap (3-11) BUN (7-18) mg/dl Creatinine (0.6-1.2) mg/dl Est Cr Clr Drug Dosing ml/min Est GFR ( Amer) Est GFR (Non-Af Amer) BUN/Creatinine Ratio (10-20) Glucose (70-99) mg/dl Calcium (8.5-10.1) mg/dl HCG, Quant mIU/ml Blood Type Blood Type Recheck Antibody Screen Crossmatch Blood Pressure Blood Pressure Findings: Normal blood pressure Blood Pressure Disposition: did not require urgent referral MDM Narrative There is no leukocytosis or worrisome anemia. No significant electrolyte abnormality or kidney failure. No coagulopathy. Quantitative beta-hCG is around 7000. Blood type returned O+. There is no need for RhoGam. The patient initially refused an IV and blood work. She then began bleeding fairly heavily in the ED and consented to an IV and workup. She had an IV placed in her left foot, she was a very difficult IV stick. I was preparing for a central line when the peripheral IV was obtained. The patient received oral Xanax, oral ibuprofen and oral Tylenol. She was given IV Zofran and IV saline. She received IV Dilaudid for pain control. When the patient began bleeding heavily here in the ED, I did immediately contact [employer]. They arrived at the bedside and the patient is going to the operating room for a D&E. A pelvic ultrasound had been ordered but was canceled when she began bleeding heavily. The patient is aware of the need for the operating room intervention. Case management has been involved. Impression & Plan Vaginal bleeding, History of multiple miscarriages, Pelvic cramping Discharge Plan Visit Data *Final* Discharge Date/Time: 09/12/18 20:43 Chief Complaint: Vaginal Bleeding Stated Complaint: VAGINAL BLEEDING ED Provider: Hollis Judd Discharge Problem: Vaginal bleeding, History of multiple miscarriages, Pelvic cramping Patient Disposition: Still a Patient Condition: Good Discharge Instructions Interventions: ED Discharge Assessment Last Done: 09/12/18 20:43 The scribe's documentation has been prepared under my direction and personally reviewed by me in its entirety. I confirm that the note above accurately reflects all work, treatment, procedures, and medical decision making performed by me.
[2018-09-13] MEDS ORDERED: METHADONE HCL 10 MG TAB PO ONE (11:30)
--- NOTE | 2018-09-14 09:20 | Discharge Summary ---
Date of Service September 24, 2018 Discharge Data Consultations 09/12/18 19:49 ED Decision to Admit Stat Procedures Performed Operation Date: 09/12/18 20:30 Actual Procedures p Dilation and Evacuation of Uterus(Not Applicable) - Olvin Menjivar MD
--- NOTE | 2018-09-23 10:32 | Discharge Summary ---
HOSPITAL COURSE: I was called from the Emergency Room to see Mrs. Hernandes. She was having heavy vaginal bleeding, passing large clots. She had been seen previously at the [facility] for care and delivery. She had spontaneously passed products of conception. At that time, they thought all the products of conception had been passed. She came into the Emergency Room, just flooding large amounts of blood and large amounts of clot. When I went down to see her, she was sitting on a bedpan with the clots out. We immediately arranged for an immediate D and C, took her down to the OR. Emergency Room nurse took her down to the OR, stayed with her and told the OR people took her into the OR itself and we then restarted an IV, got some fluids going and proceeded to do a D and C. We removed large portions of placenta. After thorough and systematic curettage of the entire endometrial cavity including suction, removed all remaining clots and debris, hemostasis was excellent. I did give the patient prophylactic antibiotics at this time, checked on her blood type which was Rh positive and then kept her overnight. Her hemoglobin which started at 11.2 when she entered the Emergency Room, the following day after fluid replacement was 7.3. At this point, her IV site had blown, she was ambulating well, eating well, she had no symptoms and she requested discharge. We elected not to transfuse her because she was asymptomatic; however, she was warned that her hemoglobin was low and that any episodes of heavy bleeding, she should immediately return to the ER for care and that she should continue to take vitamins and iron in split daily doses. I explained this to her and her partner who was present at the time of discharge. They seem to comprehend all the instructions.
== END 2018-09-13 12:49 | disposition home or self-care (01) ==
LOC: ED 18:00 → 3N 20:43 → ASU 20:43

== ENCOUNTER 2023-11-13 14:26 | Inpatient (IN) ==
--- NOTE | 2023-11-13 14:39 | ED Triage Note ---
Date of Service November 13, 2023 Provider in Triage Author: Mynor Dee History of Present Illness This patient was briefly evaluated while in triage. An abbreviated physical exam was performed. This patient is a 38-year-old Female who presents to the ED for evaluation of rash and infection to the extremities. Notes "swollen artery" in left leg. No fevers. Physical Exam GENERAL: 38 year old female. In no acute distress. SKIN: R arm with diffuse erythematous lesions and L hand. Legs are covered at this time. HEART: Regular rate and rhythm. LUNGS: Clear to auscultation. NEURO: Alert and oriented. No deficits. MUSCULOSKELETAL: R hand and R arm lesions noted with R hand edema. Open wounds noted . PSYCH: Patient is pleasant and answers all questions appropriately. Initial orders for labs and / or imaging were placed and patient was placed in the waiting area until a bed is available. Please see further documentation for the full ED course.
[2023-11-13 17:06] LABS: Basophils # (auto) 0.04 K/uL (0.00-0.20); Basophils % (auto) 0.3 %; Eosinophils % (auto) 1.6 %; Hematocrit (blood only) 32.6 % (37.0-47.0); Hemoglobin 10.7 g/dl (12.0-16.0); Immature Granulocytes # (auto) 0.17 K/uL (0.01-0.20); Immature Granulocytes % (auto) 1.3 %; Lymphocytes # (auto) 1.09 K/uL (1.20-3.40); Lymphocytes % (auto) 8.6 %; Mean Corpuscular Hgb Conc 32.8 g/dL (32.0-36.0); Mean Corpuscular Volume 79.3 fL (80.0-100.0); Mean Platelet Volume 9.1 fL (9.4-12.4); Monocytes # (auto) 0.37 K/uL (0.11-0.59); Monocytes % (auto) 2.9 %; Neutrophils # (auto) 10.86 K/uL (1.40-6.50); Neutrophils % (auto) 85.3 %; Platelet Count 429 K/uL (130-400); RDW Coefficient of Variation 14.1 % (11.5-14.5); RDW Standard Deviation 40.8 fL (36.4-46.3); Red Blood Count 4.11 M/uL (4.20-5.40); White Blood Count 12.73 K/ul (4.8-10.8)
[2023-11-13 17:17] LABS: Pregnancy Test, Serum Negative (Negative)
[2023-11-13 18:27] LABS: Albumin Globulin Ratio 0.9 (0.9-2); Albumin Level 3.2 gm/dl (3.4-5.0); BUN Creatinine Ratio 26.3 (10-20); Bilirubin,Total 0.4 mg/dl (0.2-1.0); Calcium 9.1 mg/dl (8.6-10.3); Creatinine Clr Calc Pharmacy 105.8 ml/min; Est GFR (African American) 135.3 ml/min; Est GFR (Non-African American) 116.8 ml/min; Globulin 3.4 gm/dl (2.5-4.0); Potassium 2.9 mmol/L (3.5-5.1); Total Protein 6.6 gm/dl (6.0-8.3)
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
[2023-11-13] MEDS: PIPERACILLIN/TAZOBACTAM 4.5 GM/100 ML BAG IV ONE (19:19)
[2023-11-13] MEDS: SODIUM CHLORIDE 0.9% 1,000 ML IV SCH (19:19)
[2023-11-13] MEDS: DAPTOmycin 300 MG in SYRINGE 0 ML IV SCH (19:58)
--- NOTE | 2023-11-13 20:09 | CT Scan Report ---
Exam(s): CT ABDOMEN + PELVIS Without Contrast EXAM: CT Abdomen and Pelvis Without Intravenous Contrast CLINICAL HISTORY: l groin mass. TECHNIQUE: Axial computed tomography images of the abdomen and pelvis without intravenous contrast. CTDI is 9.11 mGy and DLP is 480.96 mGy-cm. Automated exposure control was utilized for the study. A dose lowering technique was utilized adhering to the principles of ALARA. COMPARISON: No relevant prior studies available. FINDINGS: Lung bases: Unremarkable. No mass. No consolidation. ABDOMEN: Liver: Unremarkable. Gallbladder and bile ducts: Unremarkable. No calcified stones. No ductal dilation. Pancreas: Unremarkable. No ductal dilation. Spleen: Unremarkable. No splenomegaly. Adrenals: Unremarkable. No mass. Kidneys and ureters: Unremarkable. No obstructing stones. No hydronephrosis. Stomach and bowel: Mild to moderate distention of stomach with retained oral contents. No gastric mucosal thickening. No evidence for bowel obstruction. Evaluation of the bowel mucosa is slightly limited without contrast; however, no definite focal asymmetry suggested. PELVIS: Appendix: A normal caliber appendix is noted in the anterior pelvis. Bladder: Unremarkable. No stones. Reproductive: Unremarkable as visualized. ABDOMEN and PELVIS: Intraperitoneal space: Unremarkable. No free air. No significant fluid collection. Bones/joints: No acute fracture. No dislocation. Soft tissues: Unremarkable. Vasculature: Unremarkable. No abdominal aortic aneurysm. Lymph nodes: There is an abnormal soft tissue density mass involving the left inguinal region with surrounding lymphadenopathy and prominent fat stranding, extending inferiorly between the left abductor muscles of the anteromedial thigh. Evaluation mass is limited without contrast. However, the largest solid lesion is estimated at 8.1 x 5.5 x 4.5 cm. The fat stranding extends about the abnormal mass in the superficial soft tissues of the anterior superior process pubis and anteromedial proximal thigh. No significant lymphadenopathy is identified in the retroperitoneum. Only minimal nonspecific lymph nodes are noted in the left hemipelvis adjacent to the regional vasculature, measuring up to 12 mm. IMPRESSION: 1. There is an abnormal soft tissue density mass involving the left inguinal region with surrounding lymphadenopathy and prominent fat stranding, extending inferiorly between the left abductor muscles of the anteromedial thigh. Evaluation mass is limited without contrast. However, the largest solid lesion is estimated at 8.1 x 5.5 x 4.5 cm. The appearance is greater than expected for reactive lymphadenopathy. Differential considerations include a soft tissue sarcoma or prominent metastatic disease potentially from melanoma or alternate process from the lower extremity. 2. The fat stranding extends about the abnormal mass in the superficial soft tissues of the anterior superior process pubis and anteromedial proximal thigh. No significant lymphadenopathy is identified in the retroperitoneum. Only minimal nonspecific lymph nodes are noted in the left hemipelvis adjacent to the regional vasculature, measuring up to 12 mm. Electronically signed by: Mitch Roberts MD 11/13/23 20:08 PM
--- NOTE | 2023-11-13 20:32 | Ultrasound Report ---
Exam(s): US SOFT TISSUE EXAM: US Abdomen Limited CLINICAL HISTORY: ? Abscess vs fistula. Reported IV drug use. TECHNIQUE: Real-time ultrasound of the soft tissues of the abdomen with image documentation. COMPARISON: CT abdomen and pelvis without contrast performed earlier FINDINGS: Soft tissues: The presumed abnormal soft tissue mass at the left inguinal region noted on the CT examination is confirmed sonographically with irregular lobular contours and heterogeneously hyperechoic solid components. No well-defined marginal capsule is identified. While there is vascular perfusion in the soft tissue surrounding the mass. No definitive vascular flow within the mass is identified. Sonographic measurement is approximately 7.3 x 4.3 x 4.3 cm. There is surrounding subcutaneous edema noted. The mass abuts the regional vasculature along the deep margin but does not definitively communicate or encase the vasculature. No loculated fluid collection. IMPRESSION: The abnormal mass noted on the CT examination is confirmed sonographically, as detailed above, with irregular marginal lobular contours and hyperechoic central components without a well-defined capsule. Given the additional history, not available on the CT examination, an ill-defined loculated abscess is a differential consideration; however, the appearance is atypical for an abscess without marginal encapsulation. The differential also includes an abnormal lymph node or other soft tissue mass such as a sarcoma, now considered less likely given the additional history. Recommend contrast MRI or for CT evaluation to assess the enhancement pattern of the mass. Electronically signed by: Mitch Roberts MD 11/13/23 20:31 PM
[2023-11-13] MEDS: KETOROLAC 30 MG/ML VIAL IV ONE (20:43)
--- NOTE | 2023-11-13 21:22 | Surgery Consultation ---
Date of Consultation November 13, 2023 Assessment & Plan (1) Abscess of left groin: I discussed with the treating emergency room physician and the patient is being admitted on the hospitalist service. From surgery perspective we recommend the following: Patient has been initiated on broad-spectrum antibiotics in the form of daptomycin and Zosyn and these should continue Although the interpreting radiologist could not exclude a malignant process such as a sarcoma on ultrasound, given the patient's clinical history and her clinical presentation this could potentially represent an abscess. We have tentatively scheduled the patient for incision and drainage of the suspected abscess with Dr. Alberto on 11/14/2023 Appropriate cultures have been sent. At time of incision and drainage cultures will also be taken at that time. Antibiotics be further tailored based on culture results and her clinical response to the above The patient should be made n.p.o. after midnight Serial labs to be followed Would recommend hydrating the patient with IV fluids Additional recommendations be forthcoming based on her clinical course as unfolds as well as operative findings and pending culture results History of Present Illness Reason for Consultation: Left groin abscess History of Present Illness This is a 38-year-old female who presented to the emergency department secondary to left groin pain. Patient says that she noticed pain in her left groin approximately 1 week ago that got markedly worse over the past 2 days. The patient admits to history of IV drug use and notes approximate 2 weeks ago she did use injection drugs in the area where she had pain in the left groin. She noted some increased swelling. She has not had any fevers, shakes, or chills but has had some nausea or vomiting. She notes that she has never had this problem before. She notes her most recent oral intake was at approximate 1:00 PM today. Since arrival to the hospital the patient has had labs and imaging which I independent reviewed. The patient underwent a CT scan of the abdomen and pelvis. This showed the patient had an abnormal soft tissue density in the left inguinal region with surrounding lymphadenopathy. The interpreting radiologist felt that this lesion appeared solid and measured approximately 8.1 x 5.5 x 4.5 cm. He cannot exclude the possibility of a sarcoma or other metastatic process. A soft tissue ultrasound was subsequently performed and this appeared to have irregular and marginal lobular contours and the interpreting radiologist felt that this could have potentially represent a loculated abscess. As noted on the CT scan the radiologist could not exclude that this was lymphadenopathy or a soft tissue mass such as a sarcoma. Labs included CBC her white blood cell count was 12.7. Hemoglobin and hematocrit were 10.7 and 32.6. Platelet count is 4 and 29,000. Chemistry profile showed sodium is 140 with a potassium of 2.9. BUN and creatinine were 15 and 0.5. Lactic acid level was checked and was nonelevated at 1.6. A procalcitonin level was 81.2. At the time of my interview the patient was resting comfortably bed and she was in no distress. Allergies Allergy/AdvReac Type Severity Reaction Status Date / Time lorazepam Allergy Intermediate RASH Verified 11/13/23 20:19 morphine Allergy Intermediate ARM BLEW UP Verified 11/13/23 20:19 doxycycline AdvReac Unknown vomiting Verified 11/13/23 20:19 promethazine AdvReac Unknown VOMITING Verified 11/13/23 20:19 Home Medications Medication Instructions Recorded Confirmed Type alprazolam 1 mg tablet (Xanax) 1 mg PO BID PRN Anxiety 09/13/18 11/13/23 History buprenorphine HCl 8 mg sublingual 8 mg sublingual TID 11/13/23 11/13/23 History tablet escitalopram oxalate 10 mg tablet 10 mg PO DAILY 11/13/23 11/13/23 History escitalopram oxalate 20 mg tablet 20 mg PO DAILY 11/13/23 11/13/23 History Patient History Medical History (Updated 11/14/23 @ 00:33 by Dago Florence DO) History of multiple miscarriages Hx of Hemorrhagic ovarian cyst Bacterial vaginosis Family History Other No known health problems Social History Smoking Status: Never smoker Tobacco Type: E-cigarettes / Vaping Cigarettes Per Day: 1/2 pack day; Second Hand Exposure: No; Do You Dip or Chew Tobacco: No; Hx Alcohol Use: No Hx Substance Use: Yes Last Used Substance: Days (ago) Last Used Substance Other:: 2yrs ago, on subutex Substance Use Type Other:: patient presently takes prescribed methadone Preferred Language: Greek Communication Ability: Effective Visual Impairment: No Limitations Hearing Ability: Normal Inspector Penetrant Required: No Beliefs That Will Affect Care: None marital status: Single Current Living Situation: Significant Other Current Living Situation Comment: lives with 3 kids current occupational status: employed Feels Safe at Home: Yes Safety Concerns: Feels Safe At This Time Assistive Devices: None Review of Systems Constitutional: no fever and no chills Ear, Nose, Mouth, Throat: no hearing loss Respiratory: no cough and no dyspnea Cardiovascular: no chest pain Gastrointestinal: + nausea and + vomiting; no abdominal pa in Genitourinary: no dysuria Musculoskeletal: no back pain Integumentary: no rash Neurologic: no localized weakness Physical Exam Physical Exam: With a female nurse operator maintainer present I examined the patient's left groin. The patient did have a palpable masslike structure in the left groin with surrounding erythema. There were no open areas or areas of drainage. There is no crepitus in the soft tissue. The area was warm and was tender to palpation. Constitutional: + disheveled; no acute distress Eyes: no conjunctival abnormality ENMT: Ears: no hearing impairment Neck: trachea midline Respiratory: normal respiratory effort; no respiratory distress and no labored breathing Cardiovascular: Rate/Rhythm: regular rate and regular rhythm Vessels: dorsalis pedis pulses present and radial pulses present Gastrointestinal (Abdomen): Abdomen is soft and nondistended with minimal pain noted with palpation. There is no rebound tenderness or guarding or signs of peritonitis Musculoskeletal: No calf tenderness The patient was noted to have some erythema of the right upper extremity in the forearm with some pustules. Skin: no rashes Neurologic: moves all extremities Results & Data Vital Signs (Past 12 Hours) Vital Signs Temp Pulse Pulse Resp BP BP Pulse Ox 11/13/23 18:58 104 H 22 116/93 95 11/13/23 18:41 94 H 11/13/23 17:23 84 16 116/77 98 11/13/23 14:34 36.7 C 95 H 18 116/77 100 O2 Del Method 11/13/23 18:58 Room Air 11/13/23 18:41 11/13/23 17:23 Room Air 11/13/23 14:34 Room Air PG Care Time/CCT Total # of Minutes Spent Total Time Spent with Patient: Total time spent is greater than 50% in coordination of care (as documented) at patient's floor/unit and/or counseling patient: Coding Level of Care Code 21776 IN/OBS CONSULT LVL 5,80M Diagnoses Abscess of left groin L02.214
[2023-11-13] MEDS: PLASMA-LYTE A 1,000 ML IV ONE (21:43)
--- NOTE | 2023-11-13 21:52 | Emergency Department Note ---
Impression & Plan Sepsis, Abscess of left groin, Cellulitis ED Provider Note NAME: SILVER MTZ AGE: 38 SEX: F : 1985 ARRIVES VIA: Walk-In INFORMANT: Patient ED PROVIDER(S): Dago Florence DO CHIEF COMPLAINT: Pain in her left lower extremity HPI: Patient is a 38-year-old female who presents the ER with a past medical history of miscarriage, hemorrhagic ovarian cyst and IV drug use for left groin pain. She notes that she was injecting drugs 2 weeks ago for about 3 days. She notes her friend used her left groin. 2 days ago she started having pain swelling and redness in the groin tracking down her leg. Denies any fevers. Admits to chills. She also notes a rash on her right upper extremity. No chest pain or shortness of breath. No belly pain. No nausea vomiting or diarrhea ADDITIONAL HISTORY OBTAINED: Per HPI Chronic Medical/Social Conditions Affecting Care: Per HPI PAST MEDICAL HISTORY:See Below PAST SURGICAL HISTORY:See Below FAMILY HISTORY:See Below SOCIAL HISTORY:See Below HOME MEDICATIONS:See Below ALLERGIES:See Below VITALS:See Below PHYSICAL EXAMINATION: GENERAL: Sitting up in bed, alert, ill-appearing, EYE EXAM: normal conjunctiva. PERRL and EOM's grossly intact. OROPHARYNX: no exudate, no erythema, lips, buccal mucosa, and tongue normal and mucous membranes are moist NECK: supple, no nuchal rigidity, no adenopathy, non-tender LUNGS: Clear to auscultation. Normal chest wall mechanics HEART: no murmurs, S1 normal and S2 normal ABDOMEN: abdomen soft, non-tender, normo-active bowel sounds, no masses, no rebound or guarding. BACK: Back is symmetrical on inspection and there is no deformity, no midline tenderness, no CVA tenderness. SKIN: Multiple areas of pustules, track bailey in the veins and induration. UPPER EXTREMITIES: Rash throughout the entire right upper extremity on the dorsal surface which are pustules LOWER EXTREMITIES: Flexion-extension left hip knee and ankle intact. Large area of erythema and firmness and bulging in the left groin. NEURO EXAM: Normal sensorium, cranial nerves II-XII grossly intact, normal speech, no gross weakness of arms, no gross weakness of legs. MEDICAL DECISION MAKING: [Provider summary] Consults/Care Managements Discussions: Per MDM Triage Nursing notes reviewed. Limited review of prior medical records performed Vital Signs: reviewed and remarkable for tachy Differential diagnosis: Sepsis, UTI, pneumonia, metabolic, electrolyte abnormalities, cardiac sources, intracerebral event, toxicologic, neurologic, as well as other pathologies. ER treatment provided: See below Diagnostics interpreted by me include EKG and cardiac monitoring as listed below: -Cardiac Monitoring: An order was placed for continuous cardiac monitoring. The monitor shows a rate of 101 with sinus rhythm. -ECG: [none] -Laboratory studies:[Interpreted by me as stated above in MDM and shown below.] Imaging studies: Xrays: As interpreted by me:[none] CTs show: [none] Procedures:[none] Critical Care: [None] Past Med/Surg History Medical History (Updated 11/14/23 @ 00:33 by Dago Florence DO) History of multiple miscarriages Hx of Hemorrhagic ovarian cyst Bacterial vaginosis Family History Other No known health problems Social History Smoking Status: Never smoker Tobacco Type: E-cigarettes / Vaping Cigarettes Per Day: 1/2 pack day; Second Hand Exposure: No; Do You Dip or Chew Tobacco: No; Hx Alcohol Use: No Hx Substance Use: Yes Last Used Substance: Days (ago) Last Used Substance Other:: 2yrs ago, on subutex Substance Use Type Other:: patient presently takes prescribed methadone Preferred Language: Spanish Communication Ability: Effective Visual Impairment: No Limitations Hearing Ability: Normal Reinforcement Maker Required: No Beliefs That Will Affect Care: None marital status: Single Current Living Situation: Significant Other Current Living Situation Comment: lives with 3 kids current occupational status: employed Feels Safe at Home: Yes Safety Concerns: Feels Safe At This Time Assistive Devices: None Allergies Allergies Allergy/AdvReac Type Severity Reaction Status Date / Time lorazepam Allergy Intermediate RASH Verified 11/13/23 20:19 morphine Allergy Intermediate ARM BLEW UP Verified 11/13/23 20:19 doxycycline AdvReac Unknown vomiting Verified 11/13/23 20:19 promethazine AdvReac Unknown VOMITING Verified 11/13/23 20:19 Home Meds Home Medications Medication Instructions Recorded Confirmed alprazolam 1 mg tablet (Xanax) 1 mg PO BID PRN Anxiety 09/13/18 11/13/23 buprenorphine HCl 8 mg sublingual 8 mg sublingual TID 11/13/23 11/13/23 tablet escitalopram oxalate 10 mg tablet 10 mg PO DAILY 11/13/23 11/13/23 escitalopram oxalate 20 mg tablet 20 mg PO DAILY 11/13/23 11/13/23 Results & Data (ED) Vital Signs Vital Signs - 24 hr 11/13/23 14:34 11/13/23 17:23 11/13/23 18:41 Temperature 36.7 C Temperature Source Temporal Artery Scan Pulse Rate 95 H 94 H Pulse Rate [Right Finger] 84 Pulse Rate from SpO2 Sensor Pulse Rhythm Regular Pulse Strength Normal Respiratory Rate 18 16 Respiratory Effort / Characteristics Non-Labored Non-Labored Respiratory Depth Normal Normal Respiratory Pattern Regular Blood Pressure 116/77 Blood Pressure [Right Arm] 116/77 Blood Pressure Mean 90 Blood Pressure Mean [Right Arm] 90 Blood Pressure Position Sitting Pulse Oximetry 100 98 Oxygen Delivery Method Room Air Room Air Sepsis Recent Fever Within 48 Hours No Sepsis New/Unexplained Change in Mental Status No Sepsis Action Taken by Nursing No Action Required 11/13/23 18:58 11/13/23 20:12 11/13/23 21:00 Temperature Temperature Source Pulse Rate 88 97 H Pulse Rate [Right Finger] 104 H Pulse Rate from SpO2 Sensor 88 Pulse Rhythm Pulse Strength Respiratory Rate 22 15 15 Respiratory Effort / Characteristics Respiratory Depth Respiratory Pattern Blood Pressure 125/84 119/83 Blood Pressure [Right Arm] 116/93 Blood Pressure Mean 97 95 Blood Pressure Mean [Right Arm] 100 Blood Pressure Position Pulse Oximetry 95 98 99 Oxygen Delivery Method Room Air Room Air Room Air Sepsis Recent Fever Within 48 Hours Sepsis New/Unexplained Change in Mental Status Sepsis Action Taken by Nursing Laboratory Data 11/13/23 16:40 11/13/23 16:40 Lab Results 11/13/23 11/13/23 Range/Units 16:40 20:44 WBC 12.73 H (4.8-10.8) K/ul RBC 4.11 L (4.20-5.40) M/uL Hgb 10.7 L (12.0-16.0) g/dl Hct 32.6 L (37.0-47.0) % MCV 79.3 L (80.0-100.0) fL MCH 26.0 (25.0-34.0) pg MCHC 32.8 (32.0-36.0) g/dL RDW Std Deviation 40.8 (36.4-46.3) fL RDW Coeff of Cira 14.1 (11.5-14.5) % Plt Count 429 H (130-400) K/uL MPV 9.1 L (9.4-12.4) fL Immature Gran % (Auto) 1.3 % Neut % (Auto) 85.3 % Lymph % (Auto) 8.6 % [place] % (Auto) 2.9 % Eos % (Auto) 1.6 % Baso % (Auto) 0.3 % Neut # (Auto) 10.86 H (1.40-6.50) K/uL Lymph # (Auto) 1.09 L (1.20-3.40) K/uL [place] # (Auto) 0.37 (0.11-0.59) K/uL Eos # (Auto) 0.20 (0.00-0.50) K/uL Baso # (Auto) 0.04 (0.00-0.20) K/uL Immature Gran # (Auto) 0.17 (0.01-0.20) K/uL Sodium 140 (136-145) mmol/L Potassium 2.9 L (3.5-5.1) mmol/L Chloride 103 (98-107) mmol/L Carbon Dioxide 30 (21-32) mmol/L Anion Gap 7 (3-11) BUN 15 (6-23) mg/dl Creatinine 0.57 L (0.6-1.2) mg/dl Est Cr Clr Drug Dosing 105.8 ml/min Est GFR ( Amer) 135.3 ml/min Est GFR (Non-Af Amer) 116.8 ml/min BUN/Creatinine Ratio 26.3 H (10-20) Glucose 138 H (70-99(Fasting)) mg/dl Lactate 1.6 1.4 (0.4-2.0) mmol/L Calcium 9.1 (8.6-10.3) mg/dl Total Bilirubin 0.4 (0.2-1.0) mg/dl AST 44 H (13-39) U/L ALT 50 (7-52) U/L Alkaline Phosphatase 106 H (34-104) U/L Lactate Dehydrogenase 212 (86-244) U/L Total Protein 6.6 (6.0-8.3) gm/dl Albumin 3.2 L (3.4-5.0) gm/dl Globulin 3.4 (2.5-4.0) gm/dl Albumin/Globulin Ratio 0.9 (0.9-2) Procalcitonin 81.20 H (0-0.5) ng/ml HCG, Qual Negative (Negative) Administered Medications Daptomycin 300 mg/ Syringe 6 mls @ 3 mls/min IV Q24H CINDY; Protocol Stop: 11/15/23 18:59 Last Admin: 11/13/23 19:58 Dose: 3 mls/min Documented By: [facility] Sodium Chloride (Nss) 1,000 mls @ 80 mls/hr IV .[id number] CINDY Stop: 12/13/23 23:29 Last Admin: 11/14/23 00:25 Dose: 80 mls/hr Documented By: MYRIAM Potassium Chloride (K Mitchell / Wtr) 10 meq in 100 mls @ 100 mls/hr IV Q1H CINDY Stop: 11/14/23 01:29 Last Admin: 11/14/23 00:22 Dose: 100 mls/hr Documented By: MYRIAM Discontinued Medications Sodium Chloride (Nss) 1,000 mls @ 999 mls/hr IV .Q1H1M CINDY Stop: 11/13/23 21:00 Last Infusion: 11/13/23 21:40 Dose: Infused Documented By: [facility] Admin: 11/13/23 20:02 Dose: 999 mls/hr Documented By: [facility] Infusion: 11/13/23 20:02 Dose: Infused Documented By: [facility] Admin: 11/13/23 19:19 Dose: 999 mls/hr Documented By: KATLIN Piperacillin Sod/Tazobactam Sod (Zosyn) 4.5 gm in 100 mls @ 200 mls/hr IV NOW ONE Stop: 11/13/23 19:26 Last Infusion: 11/13/23 20:17 Dose: Infused Documented By: [facility] Admin: 11/13/23 19:19 Dose: 200 mls/hr Documented By: KATLIN Parenteral Electrolytes (Plasma-Lyte A Ph 7.4) 1,000 mls @ 999 mls/hr IV .Q1H1M ONE Stop: 11/13/23 21:52 Last Infusion: 11/13/23 22:54 Dose: Infused Documented By: [facility] Admin: 11/13/23 21:43 Dose: 999 mls/hr Documented By: [facility] Ketorolac Tromethamine (Ketorolac 30 Mg/Ml Vial) 30 mg IV NOW ONE Stop: 11/13/23 20:32 Last Admin: 11/13/23 20:43 Dose: 30 mg Documented By: [facility] Potassium Chloride (Potassium Chloride Crtab 20 Meq Tabcr) 40 meq PO NOW STA Stop: 11/13/23 20:53 Last Admin: 11/13/23 22:21 Dose: 40 meq Documented By: [facility] Imaging Data Radiologist's Impression: Soft Tissue Ultrasound 11/13/23 18:58 Exam(s): US SOFT TISSUE EXAM: US Abdomen Limited CLINICAL HISTORY: ? Abscess vs fistula. Reported IV drug use. TECHNIQUE: Real-time ultrasound of the soft tissues of the abdomen with image documentation. COMPARISON: CT abdomen and pelvis without contrast performed earlier FINDINGS: Soft tissues: The presumed abnormal soft tissue mass at the left inguinal region noted on the CT examination is confirmed sonographically with irregular lobular contours and heterogeneously hyperechoic solid components. No well-defined marginal capsule is identified. While there is vascular perfusion in the soft tissue surrounding the mass. No definitive vascular flow within the mass is identified. Sonographic measurement is approximately 7.3 x 4.3 x 4.3 cm. There is surrounding subcutaneous edema noted. The mass abuts the regional vasculature along the deep margin but does not definitively communicate or encase the vasculature. No loculated fluid collection. IMPRESSION: The abnormal mass noted on the CT examination is confirmed sonographically, as detailed above, with irregular marginal lobular contours and hyperechoic central components without a well-defined capsule. Given the additional history, not available on the CT examination, an ill-defined loculated abscess is a differential consideration; however, the appearance is atypical for an abscess without marginal encapsulation. The differential also includes an abnormal lymph node or other soft tissue mass such as a sarcoma, now considered less likely given the additional history. Recommend contrast MRI or for CT evaluation to assess the enhancement pattern of the mass. Electronically signed by: Mitch Roberts MD 11/13/23 20:31 PM Abdomen/Pelvis CT 11/13/23 19:00 Exam(s): CT ABDOMEN + PELVIS Without Contrast EXAM: CT Abdomen and Pelvis Without Intravenous Contrast CLINICAL HISTORY: l groin mass. TECHNIQUE: Axial computed tomography images of the abdomen and pelvis without intravenous contrast. CTDI is 9.11 mGy and DLP is 480.96 mGy-cm. Automated exposure control was utilized for the study. A dose lowering technique was utilized adhering to the principles of ALARA. COMPARISON: No relevant prior studies available. FINDINGS: Lung bases: Unremarkable. No mass. No consolidation. ABDOMEN: Liver: Unremarkable. Gallbladder and bile ducts: Unremarkable. No calcified stones. No ductal dilation. Pancreas: Unremarkable. No ductal dilation. Spleen: Unremarkable. No splenomegaly. Adrenals: Unremarkable. No mass. Kidneys and ureters: Unremarkable. No obstructing stones. No hydronephrosis. Stomach and bowel: Mild to moderate distention of stomach with retained oral contents. No gastric mucosal thickening. No evidence for bowel obstruction. Evaluation of the bowel mucosa is slightly limited without contrast; however, no definite focal asymmetry suggested. PELVIS: Appendix: A normal caliber appendix is noted in the anterior pelvis. Bladder: Unremarkable. No stones. Reproductive: Unremarkable as visualized. ABDOMEN and PELVIS: Intraperitoneal space: Unremarkable. No free air. No significant fluid collection. Bones/joints: No acute fracture. No dislocation. Soft tissues: Unremarkable. Vasculature: Unremarkable. No abdominal aortic aneurysm. Lymph nodes: There is an abnormal soft tissue density mass involving the left inguinal region with surrounding lymphadenopathy and prominent fat stranding, extending inferiorly between the left abductor muscles of the anteromedial thigh. Evaluation mass is limited without contrast. However, the largest solid lesion is estimated at 8.1 x 5.5 x 4.5 cm. The fat stranding extends about the abnormal mass in the superficial soft tissues of the anterior superior process pubis and anteromedial proximal thigh. No significant lymphadenopathy is identified in the retroperitoneum. Only minimal nonspecific lymph nodes are noted in the left hemipelvis adjacent to the regional vasculature, measuring up to 12 mm. IMPRESSION: 1. There is an abnormal soft tissue density mass involving the left inguinal region with surrounding lymphadenopathy and prominent fat stranding, extending inferiorly between the left abductor muscles of the anteromedial thigh. Evaluation mass is limited without contrast. However, the largest solid lesion is estimated at 8.1 x 5.5 x 4.5 cm. The appearance is greater than expected for reactive lymphadenopathy. Differential considerations include a soft tissue sarcoma or prominent metastatic disease potentially from melanoma or alternate process from the lower extremity. 2. The fat stranding extends about the abnormal mass in the superficial soft tissues of the anterior superior process pubis and anteromedial proximal thigh. No significant lymphadenopathy is identified in the retroperitoneum. Only minimal nonspecific lymph nodes are noted in the left hemipelvis adjacent to the regional vasculature, measuring up to 12 mm. Electronically signed by: Mitch Roberts MD 11/13/23 20:08 PM Discharge Plan Visit Data Chief Complaint: Skin Problem Stated Complaint: HIVES ON R ARM,RASH,EDEMA ED Provider: Dago Florence Discharge Problem: Sepsis, Abscess of left groin, Cellulitis Patient Disposition: Admitted As Inpatient Discharge Instructions Interventions: ED Discharge Assessment Last Done: 11/13/23 23:12 Discharge Problem: Sepsis Qualifiers: Sepsis type: sepsis due to unspecified organism Sepsis acute organ dysfunction status: unspecified Qualified Code(s): A41.9 - Sepsis, unspecified organism Cellulitis Qualifiers: Site of cellulitis: unspecified site Qualified Code(s): L03.90 - Cellulitis, unspecified
--- NOTE | 2023-11-13 22:09 | History & Physical Report ---
Date of Service November 13, 2023 Assessment & Plan (1) Abscess of left groin: Plan: 38-year-old female with past medical history significant for chronic hepatitis C without hepatic coma, short cervix affecting , tobacco use disorder, history of drug abuse, complicated by Subutex maintenance. Panic disorder. Depression presents because of lump in the left groin region and also rash in her extremities more pronounced in right forearm. Denies any fevers. Patient states she was clean for drugs for last 4 years but about 10 days ago she went to visit her friend when she was injected IV drugs into her left femoral. And since last couple of days she developed a lump in left groin and also rash in extremities more pronounced in right upper extremity. Denies any headache. No dizziness. No blurred vision. No runny nose or sore throat. No cough. No chest pain or shortness of breath. No nausea. No abdominal pain. Normal bowel and bladder movements. Currently resting comfortably and hemodynamically stable. Abscess of left groin Injected IV drug in the left femoral IV Dapto and Zosyn Follow cultures Elevated procalcitonin Surgery consulted Will also consult ID May need echo Rash extremities More pronounced in right upper extremity Possibly infectious IV antibiotics as above ID consulted If no improvement consider dermatology consult Hypokalemia We will replace Follow labs IV drug abuse Needs counseling Depression Panic disorder Continue home medications DVT prophylaxis SCDs for now Disposition Medical floor Full code History of Present Illness Chief Complaint: Right groin abscess and rash on extremities. IV drug abuse Primary Care Provider: Antonino Burch MD 38-year-old female with past medical history significant for chronic hepatitis C without hepatic coma, short cervix affecting , tobacco use disorder, history of drug abuse, complicated by Subutex maintenance. Panic disorder. Depression presents because of lump in the left groin region and also rash in her extremities more pronounced in right forearm. Denies any fevers. Patient states she was clean for drugs for last 4 years but about 10 days ago she went to visit her friend when she was injected IV drugs into her left femoral. And since last couple of days she developed a lump in left groin and also rash in extremities more pronounced in right upper extremity. Denies any headache. No dizziness. No blurred vision. No runny nose or sore throat. No cough. No chest pain or shortness of breath. No nausea. No abdominal pain. Normal bowel and bladder movements. Currently resting comfortably and hemodynamically stable. Past medical history. As mentioned above Past surgical history. Laparoscopic pelvic surgery. Dilatation curettage. Revision of cervix during . Laparoscopic excision of lesions. Treatment of incomplete . Social history. Currently vaping nicotine. Denies alcohol use. History of IV drug abuse. Family history. Brother had Hodgkin's lymphoma. Drug abuse. Mother has history of drug abuse. Sister has PCOS. Daughter has hyperlipidemia. Allergies Allergy/AdvReac Type Severity Reaction Status Date / Time lorazepam Allergy Intermediate RASH Verified 11/13/23 20:19 morphine Allergy Intermediate ARM BLEW UP Verified 11/13/23 20:19 doxycycline AdvReac Unknown vomiting Verified 11/13/23 20:19 promethazine AdvReac Unknown VOMITING Verified 11/13/23 20:19 Home Medications Medication Instructions Recorded Confirmed Type alprazolam 1 mg tablet (Xanax) 1 mg PO BID PRN Anxiety 09/13/18 11/13/23 History buprenorphine HCl 8 mg sublingual 8 mg sublingual TID 11/13/23 11/13/23 History tablet escitalopram oxalate 10 mg tablet 10 mg PO DAILY 11/13/23 11/13/23 History escitalopram oxalate 20 mg tablet 20 mg PO DAILY 11/13/23 11/13/23 History Past Med/Surg History Medical History (Updated 11/14/23 @ 00:33 by Dago Florence DO) History of multiple miscarriages Hx of Hemorrhagic ovarian cyst Bacterial vaginosis Family History Other No known health problems Social History Smoking Status: Never smoker Tobacco Type: E-cigarettes / Vaping Cigarettes Per Day: 1/2 pack day; Second Hand Exposure: No; Do You Dip or Chew Tobacco: No; Hx Alcohol Use: No Hx Substance Use: Yes Last Used Substance: Days (ago) Last Used Substance Other:: 2yrs ago, on subutex Substance Use Type Other:: patient presently takes prescribed methadone Preferred Language: Belgian Communication Ability: Effective Visual Impairment: No Limitations Hearing Ability: Normal Hand Expansion Envelope Maker Required: No Beliefs That Will Affect Care: None marital status: Single Current Living Situation: Significant Other Current Living Situation Comment: lives with 3 kids current occupational status: employed Feels Safe at Home: Yes Safety Concerns: Feels Safe At This Time Assistive Devices: None Review of Systems Review of Systems: All systems reviewed & are unremarkable except as noted in HPI & below Physical Exam Physical Exam: General- Not in distress. Head- atraumatic Eyes- PERRL. ENT- oropharynx clear Neck- supple, no JVD. Lungs- clear to auscultation no wheezing or crackles. Heart- regular rhythm; no murmur, no gallop. Abdomen- normal bowel sounds, soft, nontender, no distension Extremities- maculopapular rash seen on extremities most pronounced on right upper extremity with some pustules seen. Neuro- alert, oriented PERRL, no facial palsy; no dysarthria; moves extremities. Results & Data Results & Data Vital Signs (Past 12 Hours) Vital Signs Temp Pulse Pulse Resp BP BP Pulse Ox 11/13/23 18:58 104 H 22 116/93 95 11/13/23 18:41 94 H 11/13/23 17:23 84 16 116/77 98 11/13/23 14:34 36.7 C 95 H 18 116/77 100 O2 Del Method 11/13/23 18:58 Room Air 11/13/23 18:41 11/13/23 17:23 Room Air 11/13/23 14:34 Room Air Diagnostic Findings Laboratory Results WBC 12.73 K/ul (4.8-10.8) H 11/13/23 16:40 RBC 4.11 M/uL (4.20-5.40) L 11/13/23 16:40 Hgb 10.7 g/dl (12.0-16.0) L 11/13/23 16:40 Hct 32.6 % (37.0-47.0) L 11/13/23 16:40 MCV 79.3 fL (80.0-100.0) L 11/13/23 16:40 MCH 26.0 pg (25.0-34.0) 11/13/23 16:40 MCHC 32.8 g/dL (32.0-36.0) 11/13/23 16:40 RDW Std Deviation 40.8 fL (36.4-46.3) 11/13/23 16:40 RDW Coeff of Cira 14.1 % (11.5-14.5) 11/13/23 16:40 Plt Count 429 K/uL (130-400) H 11/13/23 16:40 MPV 9.1 fL (9.4-12.4) L 11/13/23 16:40 Immature Gran % (Auto) 1.3 % 11/13/23 16:40 Neut % (Auto) 85.3 % 11/13/23 16:40 Lymph % (Auto) 8.6 % 11/13/23 16:40 Sharkey % (Auto) 2.9 % 11/13/23 16:40 Eos % (Auto) 1.6 % 11/13/23 16:40 Baso % (Auto) 0.3 % 11/13/23 16:40 Neut # (Auto) 10.86 K/uL (1.40-6.50) H 11/13/23 16:40 Lymph # (Auto) 1.09 K/uL (1.20-3.40) L 11/13/23 16:40 Sharkey # (Auto) 0.37 K/uL (0.11-0.59) 11/13/23 16:40 Eos # (Auto) 0.20 K/uL (0.00-0.50) 11/13/23 16:40 Baso # (Auto) 0.04 K/uL (0.00-0.20) 11/13/23 16:40 Immature Gran # (Auto) 0.17 K/uL (0.01-0.20) 11/13/23 16:40 Sodium 140 mmol/L (136-145) 11/13/23 16:40 Potassium 2.9 mmol/L (3.5-5.1) L 11/13/23 16:40 Chloride 103 mmol/L (98-107) 11/13/23 16:40 Carbon Dioxide 30 mmol/L (21-32) 11/13/23 16:40 Anion Gap 7 (3-11) 11/13/23 16:40 BUN 15 mg/dl (6-23) 11/13/23 16:40 Creatinine 0.57 mg/dl (0.6-1.2) L 11/13/23 16:40 Est Cr Clr Drug Dosing 105.8 ml/min 11/13/23 16:40 Est GFR ( Amer) 135.3 ml/min 11/13/23 16:40 Est GFR (Non-Af Amer) 116.8 ml/min 11/13/23 16:40 BUN/Creatinine Ratio 26.3 (10-20) H 11/13/23 16:40 Glucose 138 mg/dl (70-99(Fasting)) H 11/13/23 16:40 Lactate 1.4 mmol/L (0.4-2.0) 11/13/23 20:44 Calcium 9.1 mg/dl (8.6-10.3) 11/13/23 16:40 Total Bilirubin 0.4 mg/dl (0.2-1.0) 11/13/23 16:40 AST 44 U/L (13-39) H 11/13/23 16:40 ALT 50 U/L (7-52) 11/13/23 16:40 Alkaline Phosphatase 106 U/L (34-104) H 11/13/23 16:40 Lactate Dehydrogenase 212 U/L (86-244) 11/13/23 16:40 Total Protein 6.6 gm/dl (6.0-8.3) 11/13/23 16:40 Albumin 3.2 gm/dl (3.4-5.0) L 11/13/23 16:40 Globulin 3.4 gm/dl (2.5-4.0) 11/13/23 16:40 Albumin/Globulin Ratio 0.9 (0.9-2) 11/13/23 16:40 Procalcitonin 81.20 ng/ml (0-0.5) H 11/13/23 16:40 HCG, Qual Negative (Negative) 11/13/23 16:40 Impressions Soft Tissue Ultrasound 11/13/23 18:58 Exam(s): US SOFT TISSUE EXAM: US Abdomen Limited CLINICAL HISTORY: ? Abscess vs fistula. Reported IV drug use. TECHNIQUE: Real-time ultrasound of the soft tissues of the abdomen with image documentation. COMPARISON: CT abdomen and pelvis without contrast performed earlier FINDINGS: Soft tissues: The presumed abnormal soft tissue mass at the left inguinal region noted on the CT examination is confirmed sonographically with irregular lobular contours and heterogeneously hyperechoic solid components. No well-defined marginal capsule is identified. While there is vascular perfusion in the soft tissue surrounding the mass. No definitive vascular flow within the mass is identified. Sonographic measurement is approximately 7.3 x 4.3 x 4.3 cm. There is surrounding subcutaneous edema noted. The mass abuts the regional vasculature along the deep margin but does not definitively communicate or encase the vasculature. No loculated fluid collection. IMPRESSION: The abnormal mass noted on the CT examination is confirmed sonographically, as detailed above, with irregular marginal lobular contours and hyperechoic central components without a well-defined capsule. Given the additional history, not available on the CT examination, an ill-defined loculated abscess is a differential consideration; however, the appearance is atypical for an abscess without marginal encapsulation. The differential also includes an abnormal lymph node or other soft tissue mass such as a sarcoma, now considered less likely given the additional history. Recommend contrast MRI or for CT evaluation to assess the enhancement pattern of the mass. Electronically signed by: Mitch Roberts MD 11/13/23 20:31 PM Abdomen/Pelvis CT 11/13/23 19:00 Exam(s): CT ABDOMEN + PELVIS Without Contrast EXAM: CT Abdomen and Pelvis Without Intravenous Contrast CLINICAL HISTORY: l groin mass. TECHNIQUE: Axial computed tomography images of the abdomen and pelvis without intravenous contrast. CTDI is 9.11 mGy and DLP is 480.96 mGy-cm. Automated exposure control was utilized for the study. A dose lowering technique was utilized adhering to the principles of ALARA. COMPARISON: No relevant prior studies available. FINDINGS: Lung bases: Unremarkable. No mass. No consolidation. ABDOMEN: Liver: Unremarkable. Gallbladder and bile ducts: Unremarkable. No calcified stones. No ductal dilation. Pancreas: Unremarkable. No ductal dilation. Spleen: Unremarkable. No splenomegaly. Adrenals: Unremarkable. No mass. Kidneys and ureters: Unremarkable. No obstructing stones. No hydronephrosis. Stomach and bowel: Mild to moderate distention of stomach with retained oral contents. No gastric mucosal thickening. No evidence for bowel obstruction. Evaluation of the bowel mucosa is slightly limited without contrast; however, no definite focal asymmetry suggested. PELVIS: Appendix: A normal caliber appendix is noted in the anterior pelvis. Bladder: Unremarkable. No stones. Reproductive: Unremarkable as visualized. ABDOMEN and PELVIS: Intraperitoneal space: Unremarkable. No free air. No significant fluid collection. Bones/joints: No acute fracture. No dislocation. Soft tissues: Unremarkable. Vasculature: Unremarkable. No abdominal aortic aneurysm. Lymph nodes: There is an abnormal soft tissue density mass involving the left inguinal region with surrounding lymphadenopathy and prominent fat stranding, extending inferiorly between the left abductor muscles of the anteromedial thigh. Evaluation mass is limited without contrast. However, the largest solid lesion is estimated at 8.1 x 5.5 x 4.5 cm. The fat stranding extends about the abnormal mass in the superficial soft tissues of the anterior superior process pubis and anteromedial proximal thigh. No significant lymphadenopathy is identified in the retroperitoneum. Only minimal nonspecific lymph nodes are noted in the left hemipelvis adjacent to the regional vasculature, measuring up to 12 mm. IMPRESSION: 1. There is an abnormal soft tissue density mass involving the left inguinal region with surrounding lymphadenopathy and prominent fat stranding, extending inferiorly between the left abductor muscles of the anteromedial thigh. Evaluation mass is limited without contrast. However, the largest solid lesion is estimated at 8.1 x 5.5 x 4.5 cm. The appearance is greater than expected for reactive lymphadenopathy. Differential considerations include a soft tissue sarcoma or prominent metastatic disease potentially from melanoma or alternate process from the lower extremity. 2. The fat stranding extends about the abnormal mass in the superficial soft tissues of the anterior superior process pubis and anteromedial proximal thigh. No significant lymphadenopathy is identified in the retroperitoneum. Only minimal nonspecific lymph nodes are noted in the left hemipelvis adjacent to the regional vasculature, measuring up to 12 mm. Electronically signed by: Mitch Roberts MD 11/13/23 20:08 PM Code Status & VTE Plan VTE Prophylaxis Plan VTE Prophylaxis will be ordered: Yes
[2023-11-13] MEDS: POTASSIUM CHLORIDE CRTAB 20 MEQ TABCR PO STA (22:21)
[2023-11-13] MEDS ORDERED: POLYETHYLENE (MIRALAX) 17 GM PACK PO PRN (23:30)
[2023-11-13] MEDS ORDERED: KETOROLAC TROMETHAMINE 15 MG/ML VIAL IV PRN (23:30)
[2023-11-14] MEDS: POTASSIUM CHLORIDE / WTR 10 MEQ/100 ML PLCT IV SCH (00:22)
[2023-11-14] MEDS: SODIUM CHLORIDE 0.9% 1,000 ML IV SCH (00:25)
[2023-11-14] MEDS: buprenorphine HCL 8 MG SUBL SL STA (01:24)
[2023-11-14] MEDS: ALPRAZolam 0.5 MG TABLET PO PRN (01:25)
[2023-11-14] MEDS: PIPERACILLIN/TAZOBACTAM 4.5 GM in DEXTROSE 5% MINI-B 100 ML IV SCH (02:56)
[2023-11-14 06:38] LABS: Hemoglobin 10.7 g/dl (12.0-16.0); Mean Corpuscular Hemoglobin 25.4 pg (25.0-34.0); Mean Corpuscular Hgb Conc 31.5 g/dL (32.0-36.0); Mean Corpuscular Volume 80.8 fL (80.0-100.0); Mean Platelet Volume 9.1 fL (9.4-12.4); Platelet Count 453 K/uL (130-400); RDW Coefficient of Variation 14.5 % (11.5-14.5); RDW Standard Deviation 42.5 fL (36.4-46.3); Red Blood Count 4.21 M/uL (4.20-5.40); White Blood Count 12.57 K/ul (4.8-10.8)
[2023-11-14 06:57] LABS: Basophils # (auto) 0.06 K/uL (0.00-0.20); Basophils % (auto) 0.5 %; Eosinophils # (auto) 0.29 K/uL (0.00-0.50); Eosinophils % (auto) 2.3 %; Immature Granulocytes # (auto) 0.14 K/uL (0.01-0.20); Immature Granulocytes % (auto) 1.1 %; Lymphocytes # (auto) 1.35 K/uL (1.20-3.40); Lymphocytes % (auto) 10.7 %; Monocytes # (auto) 0.47 K/uL (0.11-0.59); Monocytes % (auto) 3.7 %; Neutrophils # (auto) 10.26 K/uL (1.40-6.50); Neutrophils % (auto) 81.7 %
[2023-11-14 07:02] LABS: Calcium 7.9 mg/dl (8.6-10.3); Creatinine Clr Calc Pharmacy 155.3 ml/min; Est GFR (African American) 149.6 ml/min; Est GFR (Non-African American) 129.1 ml/min; Magnesium 1.7 mg/dl (1.7-2.4); Potassium 3.5 mmol/L (3.5-5.1)
[2023-11-14] MEDS: ACETAMINOPHEN 325 MG TAB PO PRN (07:52)
--- NOTE | 2023-11-14 08:53 | Surgery Progress Note ---
Date of Service November 14, 2023 Assessment & Plan (1) Abscess of left groin: Plan: reviewed images with Dr. Vu...loculated abcess. discussed options. rec incision/drainage. discussed risks ( bleeding/infection/blood clots). questions answered. pt agreeable. will proceed with I & D this AM. (2) Sepsis: Admission and Anticipated Discharge Date Admission Date: November 13, 2023 Subjective pt seen. very restless but oriented. Physical Exam Physical Exam: oriented but restless multiple skin lesions all over her body. firm mass left groin with mild erythema. very tender. Results & Data Vital Signs (Past 12 Hours) Vital Signs Temp Pulse Pulse Resp BP BP Pulse Ox 11/14/23 08:47 37.9 C H 95 11/14/23 08:00 11/14/23 07:32 39.3 C H 115 H 19 95 11/14/23 07:18 39.2 C H 118 H 14 102/65 90 11/13/23 23:00 94 H 13 122/77 100 11/13/23 22:00 88 17 117/74 98 11/13/23 21:00 97 H 15 119/83 99 O2 Del Method O2 Flow Rate 11/14/23 08:47 Nasal Cannula 2 11/14/23 08:00 Nasal Cannula 2 11/14/23 07:32 Nasal Cannula 2 11/14/23 07:18 Room Air 11/13/23 23:00 Room Air 11/13/23 22:00 Room Air 11/13/23 21:00 Room Air PG Care Time/CCT Total # of Minutes Spent Total Time Spent with Patient: Total time spent is greater than 50% in coordination of care (as documented) at patient's floor/unit and/or counseling patient: Coding Level of Care Code 86053 SUB INP/OBS CARE 08/14MIN Diagnoses Abscess of left groin L02.214 Sepsis A41.9 Sepsis acute organ dysfunction status: unspecified Sepsis type: sepsis due to unspecified organism (2) Sepsis Sepsis acute organ dysfunction status: unspecified Sepsis type: sepsis due to unspecified organism Qualified Code(s): A41.9 - Sepsis, unspecified organism
[2023-11-14] MEDS: buprenorphine HCL 8 MG SUBL SL SCH (09:10)
[2023-11-14] MEDS ORDERED: MIDAZOLAM HCL 1 MG/ML 2ML VIAL ONE (09:53)
[2023-11-14] MEDS ORDERED: fentaNYL citrate PF 100 MCG/2 ML VIAL ONE (09:53)
[2023-11-14] MEDS ORDERED: ONDANSETRON INJ 2 MG/ML 2 ML VIAL ONE (09:53)
[2023-11-14] MEDS ORDERED: PROPOFOL IV EMULSION 10 MG/ML 20 ML VIAL IV ONE (09:53)
[2023-11-14] MEDS ORDERED: DEXAMETHASONE SOD INJ 4 MG/ML VIAL ONE (09:53)
[2023-11-14] MEDS ORDERED: LIDOCAINE 2% 2 ML VIAL/AMP(20MG/ML) INFIL ONE (09:53)
--- NOTE | 2023-11-14 10:43 | Anesthesiology Consultation ---
Date of Service November 14, 2023 Assessment & Plan ASA ASA3 Proposed Anesthesia Anesthesia Type: General Risk / Benefits Reviewed With: PT / POA / Parent / Guardian, Accepts Plan and Informed Consent Obtained History Surgery Operation Date: 11/14/23 09:05 Proposed Procedures p Incision and Drainage Left Groin Abscess - Mitch Alberto, DO Height/Weight Height: 5 ft 4 in Weight: 60.8 kg Allergies Allergy/AdvReac Type Severity Reaction Status Date / Time lorazepam Allergy Intermediate RASH Verified 11/13/23 20:19 morphine Allergy Intermediate ARM BLEW UP Verified 11/13/23 20:19 doxycycline AdvReac Unknown vomiting Verified 11/13/23 20:19 promethazine AdvReac Unknown VOMITING Verified 11/13/23 20:19 Medications Home Medications Medication Instructions Recorded Confirmed Last Taken alprazolam 1 mg tablet (Xanax) 1 mg PO BID PRN Anxiety 09/13/18 11/13/23 Unknown buprenorphine HCl 8 mg sublingual 8 mg sublingual TID 11/13/23 11/13/23 Unknown tablet escitalopram oxalate 10 mg tablet 10 mg PO DAILY 11/13/23 11/13/23 Unknown escitalopram oxalate 20 mg tablet 20 mg PO DAILY 11/13/23 11/13/23 Unknown Active Medications Generic Name Dose Route Start Last Admin Trade Name Freq PRN Reason Stop Dose Admin Acetaminophen 650 mg 11/13/23 23:30 11/14/23 07:52 Acetaminophen 325 Mg Tab PO 12/13/23 23:29 650 mg Q4H PRN Administration pain/fever Alprazolam 1 mg 11/13/23 23:30 11/14/23 01:25 Alprazolam 0.5 Mg Tablet PO 12/13/23 23:29 1 mg BID PRN Administration Anxiety Buprenorphine HCl 8 mg 11/14/23 09:00 11/14/23 09:10 Buprenorphine Hcl 8 Mg Subl SL 12/14/23 08:59 8 mg TID CINDY Administration Daptomycin 300 mg/ Syringe 6 mls @ 3 mls/min 11/13/23 19:00 11/13/23 19:58 IV 11/15/23 18:59 3 mls/min Q24H CINDY Administration Protocol Sodium Chloride 1,000 mls @ 80 mls/hr 11/13/23 23:30 11/14/23 00:25 Nss IV 12/13/23 23:29 80 mls/hr .[id number] CINDY Administration Piperacillin Sod/Tazobactam 100 mls @ 25 mls/hr 11/14/23 02:00 11/14/23 07:52 Sod 4.5 gm/ Dextrose IV 11/21/23 01:59 25 mls/hr Q8H CINDY Administration Protocol NPO Date Last Intake of Fluids: 11/12/23 Time Last Intake of Fluids: 23:00 Date Last Intake of Solids: 11/12/23 Time Last Intake of Solids: 23:00 Past Medical History Medical History (Updated 11/14/23 @ 00:33 by Dago Florence DO) History of multiple miscarriages Hx of Hemorrhagic ovarian cyst Bacterial vaginosis Exercise / Class Metabolic Activity II 4-5 Yardwork/Stairs/Walk up hill Past Family History Family History Other No known health problems Past Anesthesia History No Hx of Anesthesia Complications and No Family Hx of Anesthesia Complications History of PONV No Hx of PONV and No Hx of Motion Sickness Social History Smoking Status: Never smoker tobacco type: cigarettes Smoking cigarettes per day: 1/2 pack day Do You Dip or Chew Tobacco: No Hx Alcohol Use: No Hx Substance Use: Yes substance use type: IV drugs Substance Use Type Other:: patient presently takes prescribed methadone Last Used Substance: Days (ago) Last Used Substance Other:: 2yrs ago, on subutex Review of Systems denies fever/cough/ colds/ chest pain/ SOB/ KARELY poor historian recently got subtext. pt last used cocaine three weeks ago denies KARELY Physical Exam Vital Signs Last Vital Signs Temp 37.1 C 11/14/23 10:20 Pulse 103 H 11/14/23 10:20 Resp 20 11/14/23 10:20 BP 105/72 11/14/23 10:20 Pulse Ox 96 11/14/23 10:20 O2 Del Method Room Air 11/14/23 10:20 O2 Flow Rate 2 11/14/23 08:47 ENMT Mouth: + dentures; no TMJ abnormality and no dentition abnormality Thyromental Distance: > or= 3.5 Finger Breadths Mallampati Class: II Neck neck extension not limited Respiratory normal respiratory effort; no respiratory distress Auscultation: lungs clear to auscultation bilaterally Cardiovascular Rate/Rhythm: regular rate and regular rhythm Neurologic moves all extremities Psychiatric Orientation: alert and oriented x 3 Testing Laboratory Results 11/14/23 05:56 11/14/23 05:56
[2023-11-14] MEDS ORDERED: ATROPINE SULFATE 0.1 MG/ML 10ML SYR IV PRN (10:51)
[2023-11-14] MEDS ORDERED: ePHEDrine sulfate 50 MG/ML AMP IV PRN (10:51)
[2023-11-14] MEDS ORDERED: HYDROmorphone INJ 2 MG/ML SYR/VIAL IV PRN (10:52)
[2023-11-14] MEDS ORDERED: ONDANSETRON INJ 2 MG/ML 2 ML VIAL IV PRN (10:52)
--- NOTE | 2023-11-14 10:56 | Infectious Disease Consult ---
Date of Service November 14, 2023 Telehealth Information I performed this visit using a real-time telehealth connection between my location and the patients location ([facility]). After connecting through interactive tele-video, patient was identified by name and date of and/or wristband check.Patient (or authorized healthcare patient registration representative) was informed that this was a telemedicine visit and it was being conducted confidentially over secure lines. My office door was closed and no on e else was present in the room with me.Patient (or authorized healthcare patient registration representative) provided consent to proceed with the visit, expressed an understanding of privacy and security of the telemedicine visit, and gave permission to have a hospital patient registration representative in the room in order to assist with the visit and to conduct portions of the visit, as needed. I informed the patient (or authorized healthcare patient registration representative) that I reviewed their record and presented the opportunity for them to ask any questions regarding the visit today. The patient agreed to participate. History of Present Illness History of Present Illness Reason for consultation: iv drug use, groin abscess, rash on extremities Pt in OR and could not be seen. Allergies Allergy/AdvReac Type Severity Reaction Status Date / Time lorazepam Allergy Intermediate RASH Verified 11/13/23 20:19 morphine Allergy Intermediate ARM BLEW UP Verified 11/13/23 20:19 doxycycline AdvReac Unknown vomiting Verified 11/13/23 20:19 promethazine AdvReac Unknown VOMITING Verified 11/13/23 20:19 Home Medications Medication Instructions Recorded Confirmed Type alprazolam 1 mg tablet (Xanax) 1 mg PO BID PRN Anxiety 09/13/18 11/13/23 History buprenorphine HCl 8 mg sublingual 8 mg sublingual TID 11/13/23 11/13/23 History tablet escitalopram oxalate 10 mg tablet 10 mg PO DAILY 11/13/23 11/13/23 History escitalopram oxalate 20 mg tablet 20 mg PO DAILY 11/13/23 11/13/23 History Patient History Medical History (Updated 11/14/23 @ 00:33 by Dago Florence DO) History of multiple miscarriages Hx of Hemorrhagic ovarian cyst Bacterial vaginosis Family History Other No known health problems Social History Smoking Status: Never smoker Tobacco Type: E-cigarettes / Vaping Cigarettes Per Day: 1/2 pack day; Second Hand Exposure: No; Do You Dip or Chew Tobacco: No; Hx Alcohol Use: No Hx Substance Use: Yes Last Used Substance: Days (ago) Last Used Substance Other:: 2yrs ago, on subutex Substance Use Type Other:: patient presently takes prescribed methadone Preferred Language: Yi Communication Ability: Effective Visual Impairment: No Limitations Hearing Ability: Normal Parachute Line Tier Required: No Beliefs That Will Affect Care: None marital status: Single Current Living Situation: Significant Other Current Living Situation Comment: lives with 3 kids current occupational status: employed Feels Safe at Home: Yes Safety Concerns: Feels Safe At This Time Assistive Devices: None Results & Data Vital Signs (Past 12 Hours) Vital Signs Temp Pulse Pulse Resp BP BP BP 11/14/23 10:20 37.1 C 103 H 20 105/72 11/14/23 08:47 37.9 C H 11/14/23 08:00 11/14/23 07:32 39.3 C H 115 H 19 11/14/23 07:18 39.2 C H 118 H 14 102/65 11/13/23 23:00 94 H 13 122/77 Pulse Ox O2 Del Method O2 Flow Rate 11/14/23 10:20 96 Room Air 11/14/23 08:47 95 Nasal Cannula 2 11/14/23 08:00 Nasal Cannula 2 11/14/23 07:32 95 Nasal Cannula 2 11/14/23 07:18 90 Room Air 11/13/23 23:00 100 Room Air
[2023-11-14] MEDS ORDERED: KETAMINE HCL INJ 50 MG/ML 10 ML VIAL ONE (11:02)
--- NOTE | 2023-11-14 11:33 | Operative Report ---
PG Post Operative Report Pre & Post Diagnosis Operation Date: 11/14/23 09:05 Pre-Op Diagnosis: Left Groin Abscess Post-Op Diagnosis: Left Groin Abscess I identified the patient and participated in the time-out.: Yes Procedure Operation Date: 11/14/23 09:05 Actual Procedures p Incision and Drainage Left Groin Abscess - Mitch Alberto DO Surgeon Mitch Alberto DO Generator Man shine Espinoza Estimated Blood Loss 3 Findings Consistent with Post-Op Diagnosis Specimens abcess fluid for gram stain/culture Description of Procedure After informed consent was obtained the patient was taken to the operating room and placed in supine position. After successful placement of a laryngeal mask airway the left groin was sterilely prepped and draped in usual fashion. After timeout I made a horizontal incision directly over the visible abscess. This immediately released a large amount of purulent fluid. Swabs were taken and sent for Gram stain culture and sensitivity. There was no foul odor. After draining the entire abscess the wound was thoroughly irrigated with sterile saline. Half-inch iodoform gauze packing was placed followed by 4 x 4 gauze and disposable underwear. The patient was awakened extubated and transferred to recovery in stable condition. I attest to the content of the Intraoperative Record and any orders documented therein. Any exceptions are noted below.
--- NOTE | 2023-11-14 12:27 | Anesthesiology Progress Note ---
Date of Service November 14, 2023 Anesthesia Post Procedure Vital Signs Vital Signs: Temp Pulse Pulse Pulse Resp BP BP 11/14/23 12:15 37 C 102 H 15 110/77 11/14/23 12:05 97 H 24 103/64 11/14/23 11:55 99 H 20 97/65 L 11/14/23 11:45 92 H 21 111/67 11/14/23 11:36 36.1 C L 98 H 24 109/67 11/14/23 10:20 37.1 C 103 H 20 105/72 11/14/23 08:47 37.9 C H 11/14/23 08:00 11/14/23 07:32 39.3 C H 115 H 19 11/14/23 07:18 39.2 C H 118 H 14 11/13/23 23:00 94 H 13 122/77 11/13/23 22:00 88 17 117/74 11/13/23 21:00 97 H 15 119/83 11/13/23 20:12 88 15 125/84 11/13/23 18:58 104 H 22 11/13/23 18:41 94 H 11/13/23 17:23 84 16 11/13/23 14:34 36.7 C 95 H 18 116/77 BP Pulse Ox O2 Del Method O2 Flow Rate 11/14/23 12:15 99 Oxymask 4 11/14/23 12:05 94 Oxymask 4 11/14/23 11:55 94 Oxymask 4 11/14/23 11:45 97 Oxymask 4 11/14/23 11:36 96 Oxymask 4 11/14/23 10:20 96 Room Air 11/14/23 08:47 95 Nasal Cannula 2 11/14/23 08:00 Nasal Cannula 2 11/14/23 07:32 95 Nasal Cannula 2 11/14/23 07:18 102/65 90 Room Air 11/13/23 23:00 100 Room Air 11/13/23 22:00 98 Room Air 11/13/23 21:00 99 Room Air 11/13/23 20:12 98 Room Air 11/13/23 18:58 116/93 95 Room Air 11/13/23 18:41 11/13/23 17:23 116/77 98 Room Air 11/13/23 14:34 100 Room Air Pain Intensity Left Groin: Pain Intensity: 7 Transfer of Care Handoff Completed per policy Notes Mental Status: alert / awake / arousable and participated in evaluation Patient Amnestic to Procedure: Yes Nausea / Vomiting: adequately controlled Pain: adequately controlled Airway Patency, RR, SpO2: stable & adequate BP & HR: stable & adequate Hydration State: stable & adequate Anesthetic Complications: no major complications apparent and Pt Satisfied with anesthetic care
[2023-11-14] MEDS: ESCITALOPRAM OXALATE 20 MG TAB PO SCH (15:26)
--- NOTE | 2023-11-14 15:56 | Hospitalist Progress Note ---
Date of Service November 14, 2023 Assessment & Plan (1) Abscess of left groin: Plan: 38-year-old female with past medical history significant for chronic hepatitis C without hepatic coma, short cervix affecting , tobacco use disorder, history of drug abuse, complicated by Subutex maintenance. Panic disorder. Depression presents because of lump in the left groin region and also rash in her extremities more pronounced in right forearm. Denies any fevers. Patient states she was clean for drugs for last 4 years but about 10 days ago she went to visit her friend when she was injected IV drugs into her left femoral. And since last couple of days she developed a lump in left groin and also rash in extremities more pronounced in right upper extremity. Denies any headache. No dizziness. No blurred vision. No runny nose or sore throat. No cough. No chest pain or shortness of breath. No nausea. No abdominal pain. Normal bowel and bladder movements. Currently resting comfortably and hemodynamically stable. Abscess of left groin Injected IV drug in the left femoral IV Dapto and Zosyn Blood culture sent cultures from the groin IND are pending Elevated procalcitonin Will also consult ID-appreciate input and recommended Status post I&D of left groin abscess on 11/14/2019 Appreciate surgery input and recommendation Rash extremities More pronounced in right upper extremity Possibly infectious IV antibiotics as above ID consulted If no improvement consider dermatology consult Will get RPR checked Hypokalemia We will replace Potassium level has been normalized at 3.5 Will replace more IV drug abuse Needs counseling Depression Panic disorder Continue home medications DVT prophylaxis SCDs for now Disposition Medical floor Full code Admission and Anticipated Discharge Date Admission Date: November 13, 2023 Subjective 11/14/2019 The patient was seen and examined in medical floor She is a status post I&D for left inguinal abscess She has been feeling better following the procedure Has minimal pain but denies any other significant symptom Review of Systems Review of Systems: All systems reviewed and are unremarkable except as noted below Physical Exam Physical Exam: Lying in bed, a little drowsy but does not have any other significant distress Constitutional: + ill appearing and average body habitus Eyes: PERRL, conjunctivae normal, anicteric sclerae ENMT: external ear and nose normal, oropharynx normal Neck: trachea midline, no thyromegaly Respiratory: no respiratory distress Auscultation: lungs clear to auscultation bilaterally Cardiovascular: Rate/Rhythm: regular rate and regular rhythm; not tachycardic Heart Sounds: normal S1 and normal S2; no murmur Extremities: no edema Gastrointestinal (Abdomen): Inspection/Auscultation: normal bowel sounds; abdomen not distended Percussion/Palpation: abdomen soft; abdomen nontender Musculoskeletal: No acute arthritis involving any of the joint Skin: Blisters of different sizes involving both the hands and forearm. Neurologic: normal touch/pain/proprioception and moves all extremities; no focal motor deficits Psychiatric: A+Ox3, euthymic affect Lymphatic: no cervical or axillary lymphadenopathy Results & Data Results & Data Vital Signs (Past 12 Hours) Vital Signs Temp Pulse Pulse Resp BP BP Pulse Ox 11/14/23 15:12 37.1 C 84 16 100/68 100 11/14/23 14:13 37.3 C 90 16 104/68 96 11/14/23 13:35 37.3 C 89 18 100/67 95 11/14/23 13:06 37.0 C 96 H 15 101/67 95 11/14/23 12:50 36.7 C 98 H 15 101/65 96 11/14/23 12:25 97 H 17 103/63 95 11/14/23 12:15 37 C 102 H 15 110/77 99 11/14/23 12:05 97 H 24 103/64 94 11/14/23 11:55 99 H 20 97/65 L 94 11/14/23 11:45 92 H 21 111/67 97 11/14/23 11:36 36.1 C L 98 H 24 109/67 96 11/14/23 10:20 37.1 C 103 H 20 105/72 96 11/14/23 08:47 37.9 C H 95 11/14/23 08:00 11/14/23 07:32 39.3 C H 115 H 19 95 11/14/23 07:18 39.2 C H 118 H 14 102/65 90 O2 Del Method O2 Flow Rate 11/14/23 15:12 Room Air 11/14/23 14:13 Room Air 11/14/23 13:35 Room Air 11/14/23 13:06 Room Air 11/14/23 12:50 Room Air 11/14/23 12:25 Room Air 11/14/23 12:15 Oxymask 4 11/14/23 12:05 Oxymask 4 11/14/23 11:55 Oxymask 4 11/14/23 11:45 Oxymask 4 11/14/23 11:36 Oxymask 4 11/14/23 10:20 Room Air 11/14/23 08:47 Nasal Cannula 2 11/14/23 08:00 Nasal Cannula 2 11/14/23 07:32 Nasal Cannula 2 11/14/23 07:18 Room Air Laboratory Results Short CBC 11/13/23 11/14/23 Range/Units 16:40 05:56 WBC 12.73 H 12.57 H (4.8-10.8) K/ul Hgb 10.7 L 10.7 L (12.0-16.0) g/dl Hct 32.6 L 34.0 L (37.0-47.0) % Plt Count 429 H 453 H (130-400) K/uL BMP 11/13/23 11/14/23 16:40 05:56 Sodium 140 139 Potassium 2.9 L 3.5 D Chloride 103 107 Carbon Dioxide 30 25 BUN 15 8 Creatinine 0.57 L 0.42 L Glucose 138 H 120 H Calcium 9.1 7.9 L Liver Function 11/13/23 Range/Units 16:40 Total Bilirubin 0.4 (0.2-1.0) mg/dl AST 44 H (13-39) U/L ALT 50 (7-52) U/L Alkaline Phosphatase 106 H (34-104) U/L Albumin 3.2 L (3.4-5.0) gm/dl Medications Administered Current Inpatient Medications Acetaminophen (Acetaminophen 325 Mg Tab) 650 mg PO Q4H PRN PRN Reason: pain/fever Stop: 12/13/23 23:29 Last Admin: 11/14/23 07:52 Dose: 650 mg Alprazolam (Alprazolam 0.5 Mg Tablet) 1 mg PO BID PRN PRN Reason: Anxiety Stop: 12/13/23 23:29 Last Admin: 11/14/23 01:25 Dose: 1 mg Buprenorphine HCl (Buprenorphine Hcl 8 Mg Subl) 8 mg SL TID [facility] Stop: 12/14/23 08:59 Last Admin: 11/14/23 15:26 Dose: 8 mg Escitalopram Oxalate (Escitalopram Oxalate 20 Mg Tab) 20 mg PO DAILY [facility] Stop: 12/14/23 08:59 Last Admin: 11/14/23 15:26 Dose: Not Given Daptomycin 300 mg/ Syringe 6 mls @ 3 mls/min IV Q24H [facility]; Protocol Stop: 11/15/23 18:59 Last Admin: 11/13/23 19:58 Dose: 3 mls/min Sodium Chloride (Nss) 1,000 mls @ 80 mls/hr IV .[id number] [facility] Stop: 12/13/23 23:29 Last Admin: 11/14/23 12:57 Dose: 80 mls/hr Piperacillin Sod/Tazobactam (Sod 4.5 gm/ Dextrose) 100 mls @ 25 mls/hr IV Q8H [facility]; Protocol Stop: 11/21/23 01:59 Last Infusion: 11/14/23 12:57 Dose: Infused Ketorolac Tromethamine (Ketorolac Tromethamine 15 Mg/Ml Vial) 15 mg IV Q6H PRN PRN Reason: Mod-Sev Pain (Scale 4-10) Stop: 11/18/23 23:29 Polyethylene Glycol (Polyethylene (Miralax) 17 Gm Pack) 17 gm PO DAILY PRN PRN Reason: Constipation Stop: 12/13/23 23:29
[2023-11-14] MEDS: POTASSIUM CHLORIDE CRTAB 20 MEQ TABCR PO STA (17:00)
--- NOTE | 2023-11-15 09:58 | Surgery Progress Note ---
Date of Service November 15, 2023 Assessment & Plan (1) Abscess of left groin: (2) Cellulitis: Plan the wound was repacked today. Continue packing once daily. Continue IV antibiotics. Admission and Anticipated Discharge Date Admission Date: November 13, 2023 Subjective Minimal pain. No fevers overnight. No nausea or vomiting. Physical Exam Physical Exam: AFVSS A&O x 3, NAD Left inguinal region I&D site clean, no erythema Packing with Nu Gauze Packing removed, good granulation tissue Wound repacked with Nu Gauze Results & Data Vital Signs (Past 12 Hours) Vital Signs Temp Pulse Resp BP BP Pulse Ox O2 Del Method 11/15/23 07:22 37.4 C 79 16 101/63 95 Room Air 11/15/23 02:58 36.7 C 78 16 101/61 97 Room Air 11/14/23 23:00 36.7 C 79 18 99/61 L 97 Room Air (2) Cellulitis Site of cellulitis: unspecified site Qualified Code(s): L03.90 - Cellulitis, unspecified
[2023-11-15 11:20] LABS: Basophils # (auto) 0.02 K/uL (0.00-0.20); Basophils % (auto) 0.2 %; Hematocrit (blood only) 32.5 % (37.0-47.0); Hemoglobin 10.2 g/dl (12.0-16.0); Immature Granulocytes # (auto) 0.15 K/uL (0.01-0.20); Immature Granulocytes % (auto) 1.2 %; Lymphocytes # (auto) 1.61 K/uL (1.20-3.40); Lymphocytes % (auto) 12.7 %; Mean Corpuscular Hemoglobin 25.4 pg (25.0-34.0); Mean Corpuscular Hgb Conc 31.4 g/dL (32.0-36.0); Mean Platelet Volume 9.3 fL (9.4-12.4); Monocytes # (auto) 0.62 K/uL (0.11-0.59); Monocytes % (auto) 4.9 %; Neutrophils # (auto) 10.31 K/uL (1.40-6.50); Platelet Count 525 K/uL (130-400); RDW Coefficient of Variation 14.9 % (11.5-14.5); RDW Standard Deviation 43.8 fL (36.4-46.3); Red Blood Count 4.01 M/uL (4.20-5.40); White Blood Count 12.71 K/ul (4.8-10.8)
[2023-11-15 11:34] LABS: BUN Creatinine Ratio 29.5 (10-20); Calcium 8.2 mg/dl (8.6-10.3); Creatinine Clr Calc Pharmacy 148.2 ml/min; Est GFR (African American) 147.4 ml/min; Est GFR (Non-African American) 127.2 ml/min; Potassium 3.8 mmol/L (3.5-5.1)
--- NOTE | 2023-11-15 15:28 | Hospitalist Progress Note ---
Date of Service November 15, 2023 Assessment & Plan (1) Abscess of left groin: Plan: 38-year-old female with past medical history significant for chronic hepatitis C without hepatic coma, short cervix affecting , tobacco use disorder, history of drug abuse, complicated by Subutex maintenance. Panic disorder. Depression presents because of lump in the left groin region and also rash in her extremities more pronounced in right forearm. Denies any fevers. Patient states she was clean for drugs for last 4 years but about 10 days ago she went to visit her friend when she was injected IV drugs into her left femoral. And since last couple of days she developed a lump in left groin and also rash in extremities more pronounced in right upper extremity. Denies any headache. No dizziness. No blurred vision. No runny nose or sore throat. No cough. No chest pain or shortness of breath. No nausea. No abdominal pain. Normal bowel and bladder movements. Currently resting comfortably and hemodynamically stable. Abscess of left groin Injected IV drug in the left femoral IV Dapto and Zosyn Blood culture sent cultures from the groin IND are pending Elevated procalcitonin Will also consult ID-appreciate input and recommended Status post I&D of left groin abscess on 11/14/2019 Appreciate surgery input and recommendation Has been feeling much better without much pain Denies any fever and or chills Rash extremities--following IV drug use the right elbow May have accidentally pushed the drugs in the arteries More pronounced in right upper extremity Possibly infectious/reaction to the chemicals IV antibiotics as above ID consulted-await input and recommendation If no improvement consider dermatology consult Will get RPR checked-awaited Clinically much better Hypokalemia We will replace Potassium level has been normalized at 3.5 Will replace more IV drug abuse Needs counseling Depression Panic disorder Continue home medications DVT prophylaxis SCDs for now Disposition Medical floor Full code Admission and Anticipated Discharge Date Admission Date: November 13, 2023 Subjective 11/14/2023 The patient was seen and examined in medical floor She is a status post I&D for left inguinal abscess She has been feeling better following the procedure Has minimal pain but denies any other significant symptom 11/15/2023 The patient was seen and examined in medical floor She has been feeling much better Denies any significant pain in the groin Heart rashes in the hands , especially right forearm and hands are improving Denies any fever and or chills Review of Systems Review of Systems: All systems reviewed and are unremarkable except as noted below Physical Exam Physical Exam: Lying in bed, a little drowsy but does not have any other significant distress Constitutional: + ill appearing and average body habitus Eyes: PERRL, conjunctivae normal, anicteric sclerae ENMT: external ear and nose normal, oropharynx normal Neck: trachea midline, no thyromegaly Respiratory: no respiratory distress Auscultation: lungs clear to auscultation bilaterally Cardiovascular: Rate/Rhythm: regular rate and regular rhythm; not tachycardic Heart Sounds: normal S1 and normal S2; no murmur Extremities: no edema Gastrointestinal (Abdomen): Inspection/Auscultation: normal bowel sounds; abdomen not distended Percussion/Palpation: abdomen soft; abdomen nontender Skin: Blistering lesions involving the right forearm and hands mainly and left hand have improved a lot. Neurologic: normal touch/pain/proprioception and moves all extremities; no focal motor deficits Psychiatric: A+Ox3, euthymic affect Lymphatic: no cervical or axillary lymphadenopathy Results & Data Results & Data Vital Signs (Past 12 Hours) Vital Signs Temp Pulse Resp BP Pulse Ox O2 Del Method 11/15/23 14:22 36.7 C 87 16 115/77 96 Room Air 11/15/23 08:00 Room Air 11/15/23 07:22 37.4 C 79 16 101/63 95 Room Air Laboratory Results Short CBC 11/15/23 Range/Units 10:36 WBC 12.71 H (4.8-10.8) K/ul Hgb 10.2 L (12.0-16.0) g/dl Hct 32.5 L (37.0-47.0) % Plt Count 525 H (130-400) K/uL BMP 11/15/23 10:36 Sodium 141 Potassium 3.8 Chloride 108 H Carbon Dioxide 27 BUN 13 Creatinine 0.44 L Glucose 167 H Calcium 8.2 L Medications Administered Current Inpatient Medications Acetaminophen (Acetaminophen 325 Mg Tab) 650 mg PO Q4H PRN PRN Reason: pain/fever Stop: 12/13/23 23:29 Last Admin: 11/14/23 07:52 Dose: 650 mg Alprazolam (Alprazolam 0.5 Mg Tablet) 1 mg PO BID PRN PRN Reason: Anxiety Stop: 12/13/23 23:29 Last Admin: 11/15/23 09:57 Dose: 1 mg Buprenorphine HCl (Buprenorphine Hcl 8 Mg Subl) 8 mg SL TID [facility] Stop: 12/14/23 08:59 Last Admin: 11/15/23 14:56 Dose: Not Given Escitalopram Oxalate (Escitalopram Oxalate 20 Mg Tab) 20 mg PO DAILY [facility] Stop: 12/14/23 08:59 Last Admin: 11/15/23 09:40 Dose: 20 mg Daptomycin 300 mg/ Syringe 6 mls @ 3 mls/min IV Q24H [facility]; Protocol Stop: 11/15/23 18:59 Last Admin: 11/14/23 17:00 Dose: 3 mls/min Sodium Chloride (Nss) 1,000 mls @ 80 mls/hr IV .[id number] [facility] Stop: 12/13/23 23:29 Last Infusion: 11/15/23 15:02 Dose: 80 mls/hr Piperacillin Sod/Tazobactam (Sod 4.5 gm/ Dextrose) 100 mls @ 25 mls/hr IV Q8H [facility]; Protocol Stop: 11/21/23 01:59 Last Infusion: 11/15/23 14:50 Dose: Infused Ketorolac Tromethamine (Ketorolac Tromethamine 15 Mg/Ml Vial) 15 mg IV Q6H PRN PRN Reason: Mod-Sev Pain (Scale 4-10) Stop: 11/18/23 23:29 Nicotine Polacrilex (Nicotine Polacrilex 2 Mg Gum) 1 piece MT Q3H PRN PRN Reason: smokins Stop: 12/15/23 12:24 Polyethylene Glycol (Polyethylene (Miralax) 17 Gm Pack) 17 gm PO DAILY PRN PRN Reason: Constipation Stop: 12/13/23 23:29
[2023-11-15] MEDS: NICOTINE POLACRILEX 2 MG GUM MT PRN (22:11)
--- NOTE | 2023-11-16 09:07 | Surgery Progress Note ---
Date of Service November 16, 2023 Assessment & Plan (1) Abscess of left groin: (2) Cellulitis: Plan the wound was repacked today. Continue packing once daily. Continue IV antibiotics. Admission and Anticipated Discharge Date Admission Date: November 13, 2023 Subjective feeling much better today Physical Exam Physical Exam: AFVSS A&O x 3, NAD Left inguinal region I&D site clean, no erythema Packing with Nu Gauze Results & Data Vital Signs (Past 12 Hours) Vital Signs Temp Pulse Resp BP Pulse Ox O2 Del Method 11/16/23 07:32 36.8 C 54 L 16 122/76 96 Room Air (2) Cellulitis Site of cellulitis: unspecified site Qualified Code(s): L03.90 - Cellulitis, unspecified
--- NOTE | 2023-11-16 11:17 | Hospitalist Progress Note ---
Date of Service November 16, 2023 Assessment & Plan (1) Abscess of left groin: Plan: 38-year-old female with past medical history significant for chronic hepatitis C without hepatic coma, short cervix affecting , tobacco use disorder, history of drug abuse, complicated by Subutex maintenance. Panic disorder. Depression presents because of lump in the left groin region and also rash in her extremities more pronounced in right forearm. Denies any fevers. Patient states she was clean for drugs for last 4 years but about 10 days ago she went to visit her friend when she was injected IV drugs into her left femoral. And since last couple of days she developed a lump in left groin and also rash in extremities more pronounced in right upper extremity. Denies any headache. No dizziness. No blurred vision. No runny nose or sore throat. No cough. No chest pain or shortness of breath. No nausea. No abdominal pain. Normal bowel and bladder movements. Currently resting comfortably and hemodynamically stable. Abscess of left groin Injected IV drug in the left femoral IV Dapto and Zosyn Blood culture sent cultures from the groin IND are pending Elevated procalcitonin Will cancel ID consult Likely to get oral Augmentin on discharge for soft tissue infection Cultures have been negative so far Status post I&D of left groin abscess on 11/14/2019 Appreciate surgery input and recommendation Has been feeling much better without much pain Denies any fever and or chills Management as per surgeon Rash extremities--following IV drug use the right elbow May have accidentally pushed the drugs in the arteries More pronounced in right upper extremity Possibly infectious/reaction to the chemicals IV antibiotics as above ID consulted-await input and recommendation. If no improvement consider dermatology consult Will get RPR checked-awaited Clinically much better ID consult can be canceled Hypokalemia We will replace Potassium level has been normalized at 3.5 Will replace more IV drug abuse Needs counseling Depression Panic disorder Continue home medications DVT prophylaxis SCDs for now Disposition Medical floor Full code Admission and Anticipated Discharge Date Admission Date: November 13, 2023 Subjective 11/14/2023 The patient was seen and examined in medical floor She is a status post I&D for left inguinal abscess She has been feeling better following the procedure Has minimal pain but denies any other significant symptom 11/15/2023 The patient was seen and examined in medical floor She has been feeling much better Denies any significant pain in the groin Heart rashes in the hands , especially right forearm and hands are improving Denies any fever and or chills 11/16/2023 Patient was seen and examined in medical floor She has been feeling much better without any fever and or chills Her right forearm and hand is much improved Review of Systems Review of Systems: All systems reviewed and are unremarkable except as noted below Physical Exam Physical Exam: Lying in bed, a little drowsy but does not have any other significant distress Constitutional: + ill appearing and average body habitus Eyes: PERRL, conjunctivae normal, anicteric sclerae ENMT: external ear and nose normal, oropharynx normal Neck: trachea midline, no thyromegaly Respiratory: no respiratory distress Auscultation: lungs clear to auscultation bilaterally Cardiovascular: Rate/Rhythm: regular rate and regular rhythm; not tachycardic Heart Sounds: normal S1 and normal S2; no murmur Extremities: no edema Gastrointestinal (Abdomen): Inspection/Auscultation: normal bowel sounds; abdomen not distended Percussion/Palpation: abdomen soft; abdomen nontender Skin: No swelling in the right forearm or hand, a few blisters, petechial rash has been improved Neurologic: normal touch/pain/proprioception and moves all extremities; no focal motor deficits Psychiatric: A+Ox3, euthymic affect Lymphatic: no cervical or axillary lymphadenopathy Results & Data Results & Data Vital Signs (Past 12 Hours) Vital Signs Temp Pulse Resp BP Pulse Ox O2 Del Method 11/16/23 07:32 36.8 C 54 L 16 122/76 96 Room Air Laboratory Results Current Inpatient Medications Acetaminophen (Acetaminophen 325 Mg Tab) 650 mg PO Q4H PRN PRN Reason: pain/fever Stop: 12/13/23 23:29 Last Admin: 11/14/23 07:52 Dose: 650 mg Alprazolam (Alprazolam 0.5 Mg Tablet) 1 mg PO BID PRN PRN Reason: Anxiety Stop: 12/13/23 23:29 Last Admin: 11/16/23 09:57 Dose: 1 mg Buprenorphine HCl (Buprenorphine Hcl 8 Mg Subl) 8 mg SL TID [facility] Stop: 12/14/23 08:59 Last Admin: 11/16/23 09:50 Dose: 8 mg Escitalopram Oxalate (Escitalopram Oxalate 20 Mg Tab) 20 mg PO DAILY [facility] Stop: 12/14/23 08:59 Last Admin: 11/16/23 09:51 Dose: 20 mg Sodium Chloride (Nss) 1,000 mls @ 80 mls/hr IV .[id number] [facility] Stop: 12/13/23 23:29 Last Admin: 11/16/23 04:55 Dose: 80 mls/hr Piperacillin Sod/Tazobactam (Sod 4.5 gm/ Dextrose) 100 mls @ 25 mls/hr IV Q8H [facility]; Protocol Stop: 11/21/23 01:59 Last Admin: 11/16/23 09:51 Dose: 25 mls/hr Ketorolac Tromethamine (Ketorolac Tromethamine 15 Mg/Ml Vial) 15 mg IV Q6H PRN PRN Reason: Mod-Sev Pain (Scale 4-10) Stop: 11/18/23 23:29 Nicotine Polacrilex (Nicotine Polacrilex 2 Mg Gum) 1 piece MT Q3H PRN PRN Reason: smokins Stop: 12/15/23 12:24 Last Admin: 11/16/23 09:51 Dose: 1 piece Polyethylene Glycol (Polyethylene (Miralax) 17 Gm Pack) 17 gm PO DAILY PRN PRN Reason: Constipation Stop: 12/13/23 23:29
--- NOTE | 2023-11-17 10:24 | Surgery Progress Note ---
Date of Service November 17, 2023 Assessment & Plan (1) Abscess of left groin: Plan POD 3 Incision and Drainage Left Groin Abscess Pain controlled Per patient Waiting to see ID for her hand Nursing to continue: 1/2" plain packing to L groin wound daily, cover with 4x4 gauze and ABD, mesh underwear or tape to help keep dressing in place Pt to follow up O/P with Dr. Alberto in 7-10 days after discharge General surgery will follow peripherally Admission and Anticipated Discharge Date Admission Date: November 13, 2023 Subjective Pt resting in bed No complaints Review of Systems Integumentary: + rash (right hand ) and + wounds (groin ) Physical Exam Constitutional: cooperative and comfortable; no acute distress Skin: Dressing to Left groin area Results & Data Vital Signs (Past 12 Hours) Vital Signs Temp Pulse Resp BP Pulse Ox O2 Del Method 11/17/23 07:21 97.9 F 53 L 18 130/82 96 Room Air PG Care Time/CCT Total # of Minutes Spent Total Time Spent with Patient: Total time spent is greater than 50% in coordination of care (as documented) at patient's floor/unit and/or counseling patient: Coding Level of Care Code 89385 Post Operative Follow-Up Diagnoses Abscess of left groin L02.214
[2023-11-17] MEDS: COUGH DROP (SUGAR FREE) LOZ 24 LOZ/1 BOX BUCCAL ONE (12:29)
--- NOTE | 2023-11-17 14:28 | Hospitalist Progress Note ---
Date of Service November 17, 2023 Assessment & Plan (1) Abscess of left groin: Plan: 38-year-old female with past medical history significant for chronic hepatitis C without hepatic coma, short cervix affecting , tobacco use disorder, history of drug abuse, complicated by Subutex maintenance. Panic disorder. Depression presents because of lump in the left groin region and also rash in her extremities more pronounced in right forearm. Denies any fevers. Patient states she was clean for drugs for last 4 years but about 10 days ago she went to visit her friend when she was injected IV drugs into her left femoral. And since last couple of days she developed a lump in left groin and also rash in extremities more pronounced in right upper extremity. Denies any headache. No dizziness. No blurred vision. No runny nose or sore throat. No cough. No chest pain or shortness of breath. No nausea. No abdominal pain. Normal bowel and bladder movements. Currently resting comfortably and hemodynamically stable. Abscess of left groin Injected IV drug in the left femoral IV Dapto and Zosyn Blood culture sent cultures from the groin IND are pending Elevated procalcitonin Will cancel ID consult Likely to get oral Augmentin on discharge for soft tissue infection Cultures have been negative so far Will give oral Augmentin to continue for a total of 10 days Status post I&D of left groin abscess on 11/14/2019 Appreciate surgery input and recommendation Has been feeling much better without much pain Denies any fever and or chills Management as per surgeon The wound will be dressed as per the instruction by the surgeon She will have an appointment with us surgeon as an outpatient as recommended Rash extremities--following IV drug use the right elbow May have accidentally pushed the drugs in the arteries More pronounced in right upper extremity Possibly infectious/reaction to the chemicals IV antibiotics as above ID consulted-await input and recommendation. If no improvement consider dermatology consult Will get RPR checked-awaited Clinically much better ID consult can be canceled Rashes involving the right forearm and hand and the fingertips has improved a lot Advised to use plain lotion like Vaseline to keep it moist Hypokalemia We will replace Potassium level has been normalized at 3.5 Will replace more IV drug abuse Needs counseling Depression Panic disorder Continue home medications DVT prophylaxis SCDs for now Disposition Medical floor Full code Admission and Anticipated Discharge Date Admission Date: November 13, 2023 Subjective 11/14/2023 The patient was seen and examined in medical floor She is a status post I&D for left inguinal abscess She has been feeling better following the procedure Has minimal pain but denies any other significant symptom 11/15/2023 The patient was seen and examined in medical floor She has been feeling much better Denies any significant pain in the groin Heart rashes in the hands , especially right forearm and hands are improving Denies any fever and or chills 11/16/2023 Patient was seen and examined in medical floor She has been feeling much better without any fever and or chills Her right forearm and hand is much improved 11/17/2023 The patient was seen and examined in medical floor She has been feeling much better today and denies any fever and or chills Heart rash mainly in the right forearm and hand has improved a lot Left groin wound is being healing as well She wants to go home and she will be discharged home this afternoon Review of Systems Review of Systems: All systems reviewed and are unremarkable except as noted below Physical Exam Physical Exam: Lying in bed, a little drowsy but does not have any other significant distress Constitutional: average body habitus; not ill appearing Eyes: PERRL, conjunctivae normal, anicteric sclerae ENMT: external ear and nose normal, oropharynx normal Neck: trachea midline, no thyromegaly Respiratory: no respiratory distress Auscultation: lungs clear to auscultation bilaterally Cardiovascular: Rate/Rhythm: regular rate and regular rhythm; not tachycardic Heart Sounds: normal S1 and normal S2; no murmur Extremities: no edema Gastrointestinal (Abdomen): Inspection/Auscultation: normal bowel sounds; abdomen not distended Percussion/Palpation: abdomen soft; abdomen nontender Musculoskeletal: No acute arthritis involving any of the joint Skin: Rash involving the right forearm and hands has improved a lot Neurologic: normal touch/pain/proprioception and moves all extremities; no focal motor deficits Psychiatric: A+Ox3, euthymic affect Lymphatic: no cervical or axillary lymphadenopathy Results & Data Results & Data Vital Signs (Past 12 Hours) Vital Signs Temp Pulse Resp BP Pulse Ox O2 Del Method 11/17/23 07:21 36.6 C 53 L 18 130/82 96 Room Air Medications Administered Current Inpatient Medications Acetaminophen (Acetaminophen 325 Mg Tab) 650 mg PO Q4H PRN PRN Reason: pain/fever Stop: 12/13/23 23:29 Last Admin: 11/14/23 07:52 Dose: 650 mg Alprazolam (Alprazolam 0.5 Mg Tablet) 1 mg PO BID PRN PRN Reason: Anxiety Stop: 12/13/23 23:29 Last Admin: 11/17/23 08:15 Dose: 1 mg Amoxicillin/Clavulanate Potassium (Amoxicillin/Clavulanate 875 Mg Tab) 1 tab PO Q12H [facility] Stop: 11/20/23 23:59 Buprenorphine HCl (Buprenorphine Hcl 8 Mg Subl) 8 mg SL TID [facility] Stop: 12/14/23 08:59 Last Admin: 11/17/23 14:17 Dose: 8 mg Escitalopram Oxalate (Escitalopram Oxalate 20 Mg Tab) 20 mg PO DAILY [facility] Stop: 12/14/23 08:59 Last Admin: 11/17/23 08:14 Dose: 20 mg Sodium Chloride (Nss) 1,000 mls @ 80 mls/hr IV .[id number] [facility] Stop: 12/13/23 23:29 Last Admin: 11/17/23 02:05 Dose: 80 mls/hr Ketorolac Tromethamine (Ketorolac Tromethamine 15 Mg/Ml Vial) 15 mg IV Q6H PRN PRN Reason: Mod-Sev Pain (Scale 4-10) Stop: 11/18/23 23:29 Nicotine Polacrilex (Nicotine Polacrilex 2 Mg Gum) 1 piece MT Q3H PRN PRN Reason: smokins Stop: 12/15/23 12:24 Last Admin: 11/16/23 09:51 Dose: 1 piece Polyethylene Glycol (Polyethylene (Miralax) 17 Gm Pack) 17 gm PO DAILY PRN PRN Reason: Constipation Stop: 12/13/23 23:29
[2023-11-17 15:27] LABS: Basophils # (auto) 0.04 K/uL (0.00-0.20); Basophils % (auto) 0.5 %; Eosinophils # (auto) 0.16 K/uL (0.00-0.50); Eosinophils % (auto) 1.8 %; Hematocrit (blood only) 31.8 % (37.0-47.0); Immature Granulocytes # (auto) 0.35 K/uL (0.01-0.20); Lymphocytes # (auto) 2.86 K/uL (1.20-3.40); Lymphocytes % (auto) 32.8 %; Mean Corpuscular Hemoglobin 25.3 pg (25.0-34.0); Mean Corpuscular Hgb Conc 31.4 g/dL (32.0-36.0); Mean Corpuscular Volume 80.5 fL (80.0-100.0); Mean Platelet Volume 9.2 fL (9.4-12.4); Monocytes # (auto) 0.54 K/uL (0.11-0.59); Monocytes % (auto) 6.2 %; Neutrophils # (auto) 4.77 K/uL (1.40-6.50); Neutrophils % (auto) 54.7 %; Nucleated RBC # (auto) 0.02 K/uL (0.00-0.12); Nucleated RBC % (auto) 0.2 %; Platelet Count 525 K/uL (130-400); RDW Coefficient of Variation 14.6 % (11.5-14.5); RDW Standard Deviation 42.7 fL (36.4-46.3); Red Blood Count 3.95 M/uL (4.20-5.40); White Blood Count 8.72 K/ul (4.8-10.8)
[2023-11-17] MEDS ORDERED: AMOXICILLIN/CLAVULANATE 875 MG TAB PO SCH (21:00)
--- NOTE | 2023-11-19 08:31 | Discharge Summary ---
Date of Service November 19, 2023 Admission HPI Per Admitting Provider 38-year-old female with past medical history significant for chronic hepatitis C without hepatic coma, short cervix affecting , tobacco use disorder, history of drug abuse, complicated by Subutex maintenance. Panic disorder. Depression presents because of lump in the left groin region and also rash in her extremities more pronounced in right forearm. Denies any fevers. Patient states she was clean for drugs for last 4 years but about 10 days ago she went to visit her friend when she was injected IV drugs into her left femoral. And since last couple of days she developed a lump in left groin and also rash in extremities more pronounced in right upper extremity. Denies any headache. No dizziness. No blurred vision. No runny nose or sore throat. No cough. No chest pain or shortness of breath. No nausea. No abdominal pain. Normal bowel and bladder movements. Currently resting comfortably and hemodynamically stable. Past medical history. As mentioned above Past surgical history. Laparoscopic pelvic surgery. Dilatation curettage. Revision of cervix during . Laparoscopic excision of lesions. Treatment of incomplete . Social history. Currently vaping nicotine. Denies alcohol use. History of IV drug abuse. Family history. Brother had Hodgkin's lymphoma. Drug abuse. Mother has history of drug abuse. Sister has PCOS. Daughter has hyperlipidemia. Admission Exam Per Admitting Provider Physical Exam: General- Not in distress. Head- atraumatic Eyes- PERRL. ENT- oropharynx clear Neck- supple, no JVD. Lungs- clear to auscultation no wheezing or crackles. Heart- regular rhythm; no murmur, no gallop. Abdomen- normal bowel sounds, soft, nontender, no distension Extremities- maculopapular rash seen on extremities most pronounced on right upper extremity with some pustules seen. Neuro- alert, oriented PERRL, no facial palsy; no dysarthria; moves extremities. Principal Diagnosis Left groin abscess status post I&D, right forearm and hand rash-improved Discharge Exam Lying in bed, a little drowsy but does not have any other significant distress Constitutional average body habitus; not ill appearing Eyes PERRL, conjunctivae normal, anicteric sclerae ENMT external ear and nose normal, oropharynx normal Neck trachea midline, no thyromegaly Respiratory no respiratory distress Auscultation: lungs clear to auscultation bilaterally Cardiovascular Rate/Rhythm: regular rate and regular rhythm; not tachycardic Heart Sounds: normal S1 and normal S2; no murmur Extremities: no edema Gastrointestinal (Abdomen) Inspection/Auscultation: normal bowel sounds; abdomen not distended Percussion/Palpation: abdomen soft; abdomen nontender Neurologic normal touch/pain/proprioception and moves all extremities; no focal motor deficits Psychiatric A+Ox3, euthymic affect Lymphatic no cervical or axillary lymphadenopathy Discharge Data Allergies Allergy/AdvReac Type Severity Reaction Status Date / Time lorazepam Allergy Intermediate RASH Verified 11/13/23 20:19 morphine Allergy Intermediate ARM BLEW UP Verified 11/13/23 20:19 doxycycline AdvReac Unknown vomiting Verified 11/13/23 20:19 promethazine AdvReac Unknown VOMITING Verified 11/13/23 20:19 Consultations 11/13/23 20:58 Consult General Surgery Stat ED Decision to Admit Stat 11/14/23 09:00 Consult Infectious Diseases Routine Procedures Performed Operation Date: 11/14/23 09:05 Actual Procedures p Incision and Drainage Left Groin Abscess - Mitch Alberto, Ordered Studies 11/13/23 18:58 soft tissue groin Urgent 11/13/23 19:00 CT abd pelvis wo con Stat Hospital Course (1) Abscess of left groin: 38-year-old female with past medical history significant for chronic hepatitis C without hepatic coma, short cervix affecting , tobacco use disorder, history of drug abuse, complicated by Subutex maintenance. Panic disorder. Depression presents because of lump in the left groin region and also rash in her extremities more pronounced in right forearm. Denies any fevers. Patient states she was clean for drugs for last 4 years but about 10 days ago she went to visit her friend when she was injected IV drugs into her left femoral. And since last couple of days she developed a lump in left groin and also rash in extremities more pronounced in right upper extremity. Denies any headache. No dizziness. No blurred vision. No runny nose or sore throat. No cough. No chest pain or shortness of breath. No nausea. No abdominal pain. Normal bowel and bladder movements. Currently resting comfortably and hemodynamically stable. Abscess of left groin Injected IV drug in the left femoral IV Dapto and Zosyn Blood culture sent cultures from the groin IND are pending Elevated procalcitonin Will cancel ID consult Likely to get oral Augmentin on discharge for soft tissue infection Cultures have been negative so far Will give oral Augmentin to continue for a total of 10 days Status post I&D of left groin abscess on 11/14/2019 Appreciate surgery input and recommendation Has been feeling much better without much pain Denies any fever and or chills Management as per surgeon The wound will be dressed as per the instruction by the surgeon She will have an appointment with us surgeon as an outpatient as recommended Rash extremities--following IV drug use the right elbow May have accidentally pushed the drugs in the arteries More pronounced in right upper extremity Possibly infectious/reaction to the chemicals IV antibiotics as above ID consulted-await input and recommendation. If no improvement consider dermatology consult Will get RPR checked-awaited Clinically much better ID consult can be canceled Rashes involving the right forearm and hand and the fingertips has improved a lot Advised to use plain lotion like Vaseline to keep it moist Hypokalemia We will replace Potassium level has been normalized at 3.5 Will replace more IV drug abuse Needs counseling Depression Panic disorder Continue home medications DVT prophylaxis SCDs for now Disposition Medical floor Full code Total Time Total Time Spent Total Time Spent (In Minutes): 35 minutes Discharge Plan Discharge Items Patient Disposition: Home - Self-Care Reason For Visit: LEFT GROIN ABSCESS,RASH ON EXTREMITIES Discharge Diagnosis: Left groin abscess status post I&D, right forearm and hand rash-improved Condition on Discharge: Good Activity: Resume your previous activity Non-emergency contact: Primary Care Provider Call non-emergency contact if: you have any medication questions and your symptoms worsen Follow-up/Referrals: Mitch Alberto DO [Surgeon] - (may call to schedule follow up in the clinic within 2 weeks) Mervat Delgado MD [Outside Practitioners] - (Date & Time 11/24/2023 1:40 PM Provider Mervat Delgado MD [facility] ) Diet: Regular Addtl Attending Provider Instructions: Please take precautions to avoid falls Strongly advised to quit use of IV drugs Can apply plain Vaseline lotion right forearm and hand-do not use any local antibiotic cream or lotion Please keep appointments with the healthcare providers Wound dressing should be dressed as advised below pack left groin wound daily with dry 1/2" nu-gauze packing, cover with dry 4x4 gauze, and medical tape Follow up with Dr. Alberto in the office in 7-10 days Pending Studies at Discharge: No Stand-Alone Forms: My [facility], Smoking Cessation Medications and DC Order Prescriptions: New amoxicillin-pot clavulanate 875-125 mg Tablet 1 tab PO Q12H Qty: 14 0RF Continued alprazolam [Xanax] 1 mg Tablet 1 mg PO BID PRN (Reason: Anxiety) escitalopram oxalate 10 mg tablet 10 mg PO DAILY escitalopram oxalate 20 mg tablet 20 mg PO DAILY buprenorphine HCl 8 mg tablet, sublingual 8 mg SUBLINGUAL TID Discharge Orders: Discharge Order (Routine); Ordered 11/17/23 Ordered By: Seth Purdy Admission Data Admit Date/Time: 11/13/23 21:54 Attending Provider: Seth Purdy Admit Provider: Carlos Eduardo Oleary Primary Care Provider: Antonino Burch Other Providers: Mitch Alberto; Carlos Eduardo Oleary; Kit Bradshaw; Shruti Sue; Bogdan Sawant I.; Sawyer Isaac II; Cydney Escudero; Srikanth Pedersen; Carlos Enrique Chung; Rhonda Yepez; Satya Chakraborty; Edmund Iglesias Other Interventions: Discharge Summary Assessment (RN) Last Done: 11/17/23 15:04
== END 2023-11-17 18:43 | disposition home or self-care (01) | DRG 872 ==
LOC: ED 14:26 → 3N 21:54